=== PATIENT | female | born 1995 | race Caucasian/White ===

== ENCOUNTER 2020-08-10 19:12 | Outpatient (RCR) | payer OTHER, SELFPAY | END 2020-08-12 23:59 | LOC: EMPH 19:12 | PROVIDERS: Visit Provider Family Medicine Geriatric Medicine | DX: Z11.59 Encounter for screening for other viral diseases (principal) | CPT/HCPCS: 87635; U0003 ==

== ENCOUNTER 2020-09-04 13:39 | Emergency (ER) | payer OTHER, SELFPAY ==
[2020-09-04 13:40] VITALS: BP 138/86; PULSE 86; RESP 15; TEMP 36.4; O2SAT 100; BMI 23.9
--- NOTE | 2020-09-04 13:48 | RAD_ITS ---
STUDY: X-RAY - RIGHT HAND, ATTENTION THERE FINGER REASON FOR EXAM: Female, 24 years old. HIT RIGHT 3RD FINGER ON A MEDAL TABLE. TECHNIQUE: 3 view(s) of the finger were obtained. COMPARISON: None. FINDINGS: Normal metacarpal head. Normal metacarpophalangeal joint. Normal proximal phalanx. Normal middle phalanx. Normal distal phalanx. Normal proximal interphalangeal joint. Normal distal interphalangeal joint. RAD/Finger(s) Min 2 Views IMPRESSION: Normal x-ray examination of the finger. Electronically Signed: Ammon Parker, at 14:23 EDT , Service support ,
--- NOTE | 2020-09-04 13:56 | ED.VISSUMM ---
- ER Visit Summary Date of Service: 09/04/20 Chief Complaint: Right third finger injury History of Present Illness: The patient is a 24 F who presents with a right third finger injury that occurred 2 days ago. Patient hit her finger on a metal table. Patient states her pain is aching. Patient states the pain is worse with movement. Patient states it is better with rest. Patient denies any paresthesias or weakness. Patient denies any other injuries. Physical Examination: Vital signs are stable. Patient is afebrile. Patient is in no acute distress. Musculoskeletal exam reveals tenderness, edema, and ecchymosis over the proximal phalanx of the right third finger and PIP joint. There is no obvious deformity noted. Range of motion was slightly limited in flexion secondary to pain. Sensation was intact to light touch in all digits. Capillary refill was less than 2 seconds in all digits. Test Results: X-rays of the right third finger were obtained. There is no acute fracture. These were interpreted by the radiologist and reviewed by myself. Emergency Department Course and Treatment: Patient was given AlumaFoam splint. Patient is instructed to ice and elevate the right third finger. Patient was instructed to take Tylenol or ibuprofen as needed for pain. Patient was instructed to follow-up with a primary care physician in 5 to 7 days. Patient understood and was agreeable with the plan. All questions were answered. Disposition: Discharge home Impression: Sprain right third finger This note was generated with [employer] dictation software. It may contain incorrect words, spelling, and punctuation that were not noted in review of the chart prior to signing ED Disposition - Plan for ED Patient: Disposition: Home or Assisted Living Diagnosis: Sprain of right middle finger Instructions: ED Sprain Finger Referrals: Jolanta Rodas DO [STAFF PHYSICIAN] - 5-7 Days
== END 2020-09-04 14:55 | disposition home or self-care (01) ==
PROVIDERS: Emergency Provider Emergency Medicine
DX: S63.612A Unspecified sprain of right middle finger, initial encounter (principal); W22.8XXA Striking against or struck by other objects, initial encounter
CPT/HCPCS: 73140; 99282

== ENCOUNTER 2020-09-10 16:37 | Outpatient (RCR) | payer OTHER, SELFPAY | END 2020-09-12 23:59 | LOC: EMPH 16:37 | PROVIDERS: Visit Provider Family Medicine Geriatric Medicine | DX: Z03.818 Encounter for observation for suspected exposure to other biological agents ruled out (principal) | CPT/HCPCS: 87426 ==

== ENCOUNTER 2020-09-22 09:49 | Outpatient (RCR) | payer OTHER, SELFPAY | END 2020-10-12 23:59 | LOC: EMPH 09:49 | PROVIDERS: Referring Provider Family Medicine Geriatric Medicine; Visit Provider Family Medicine Geriatric Medicine | DX: Z03.818 Encounter for observation for suspected exposure to other biological agents ruled out (principal) | CPT/HCPCS: 87426 ==

== ENCOUNTER → 2020-12-23 15:08 | Outpatient (CLI) | payer OTHER, SELFPAY ==
[2020-12-21 09:13] VITALS: BMI 23.9
[2020-12-23 17:23] LABS: Absolute Lymphocyte Count 2.02 X10^3/uL (0.83-4.51); Basophil# 0.03 X10^3/uL; Basophil% 0.4 % (0-1); Eosinophil# 0.09 X10^3/uL; Eosinophils% 1.2 % (0-5); Hematocrit 39.5 % (37-47); Hemoglobin 13.3 g/dL (12.0-15.0); Lymphocyte # 2.02 X10^3/ul (4.0); Lymphocyte % 26.1 % (19-41); Mean Corp Hgb Conc 33.7 g/dL (32-36); Mean Corpuscular Hgb 30.7 pg (27.0-32.0); Mean Corpuscular Volume 91.2 fL (81-99); Mean Platelet Vol. 10.3 fl (6.2-12.0); Monocyte# 0.54 X10^3/uL; NRBC Flagged by Analyzer 0 % (0-5); Neutrophil # 4.96 X10^3/uL (2.7-7.7); Neutrophil % 64.1 % (47-70); Platelet Count 265 K/mm3 (150-450); RBC Distribution Width CV 11.7 % (11.6-14.6); RBC Distribution Width SD 39.3 fl (35.1-43.9); Red Blood Count 4.33 M/mm3 (4.2-5.4); White Blood Count 7.7 K/mm3 (4.4-11.0)
[2020-12-23 17:33] LABS: Vitamin D,25 Hydroxy 25.9 ng/mL
[2020-12-23 17:48] LABS: ALB/GLOB Ratio 1.3 RATIO (0.9-2.4); AST(SGOT) 12 U/L (15-37); Alanine Aminotransfer ALT/SGPT 18 U/L (13-56); Albumin, Serum 4.7 g/dL (3.2-5.0); Alkaline Phosphatase 63 U/L (45-117); Anion Gap 6 (5-15); BUN 12 mg/dL (7-18); BUN/Creat Ratio 19.6 RATIO (10-20); Calcium,Total 9.6 mg/dL (8.5-10.1); Chloride 104 mmol/L (98-107); Creatinine, Serum 0.61 mg/dL (0.55-1.02); EST Glomerular Filtration Rate 128 mL/min (>60); Est Glom Filt Rate - Afr Amer 155 mL/min (>60); Globulin 3.5 g/dL (2.2-4.2); Glucose 82 mg/dL (74-106); Iron 73 ug/dL (50-170); Iron Binding Capacity,Total 312 ug/dL (250-450); PERCENT IRON SATURATION 23.4 % (15.0-55.0); Potassium 3.8 mmol/L (3.5-5.1); Protein, Total 8.2 g/dL (6.4-8.2); Sodium Level 135 mmol/L (136-145)
== END ==
PROVIDERS: PCP Internal Medicine; Referring Provider Internal Medicine; Visit Provider Internal Medicine
DX: D68.0 Von Willebrand disease (principal)
CPT/HCPCS: 36415; 80053; 82306; 83540; 83550; 84443; 85025

== ENCOUNTER → 2021-01-07 13:28 | Outpatient (CLI) | payer OTHER, SELFPAY ==
[2021-01-01 13:00] VITALS: BMI 24.3
--- NOTE | 2021-01-07 13:30 | CT_ITS ---
STUDY: CT ABDOMEN AND PELVIS WITH CONTRAST REASON FOR EXAM: Female, 25 years old. Abd pain RADIATION DOSAGE (If Supplied By Facility): CTDIvol = ( 9.34 ) mGy, DLP = ( 457.72 ) mGycm TECHNIQUE: Transaxial images were obtained from the dome of the diaphragm to the symphysis pubis with oral contrast. Oral and amp; IV Readi-CAT and amp; 100mL Isovue-300 was administered. Sagittal and coronal images were reconstructed. Individualized dose optimization techniques were used for this CT. COMPARISON: None. FINDINGS: The visualized lung bases are unremarkable. The visualized portions of the heart are within normal limits. Normal liver. Normal gallbladder and extrahepatic biliary system. Normal spleen. Normal pancreas. Normal bilateral adrenal glands. Normal right kidney. Normal left kidney. Normal visualized stomach. Normal small intestine. Normal colon. The appendix is visualized and appears normal. Normal abdominal aorta. Normal inferior vena cava. Normal retroperitoneum. Normal urinary bladder. Follicles are seen in both ovaries. IUD is seen within the endometrium. Normal abdominal wall. Normal osseous structures. CT/Abdomen/Pelvis WITH Contrast IMPRESSION: Bilateral ovarian follicles. IUD is seen within the endometrium. Electronically Signed: Ammon Parker MD at 14:27 EST , Service support ,
== END ==
PROVIDERS: PCP Internal Medicine; Referring Provider Surgery; Visit Provider Surgery
DX: R10.9 Unspecified abdominal pain (principal)
CPT/HCPCS: 74177

== ENCOUNTER 2021-01-19 07:51 | Day surgery (SDC) | payer OTHER, SELFPAY ==
[2021-01-01 13:00] VITALS: BMI 24.3
[2021-01-19] VITALS (7 sets, daily range): BP systolic 96–122; BP diastolic 52–79; PULSE 80–99; RESP 16; TEMP 36.1–36.7; O2SAT 100; BMI 23.4
--- NOTE | 2021-01-19 07:42 | HP_ITS ---
Intake Vital Signs 01/01/21 Height 5 ft 3 in 01/01/21 Weight: 137 lb 8 oz 01/01/21 BP 126/75 H 01/01/21 Blood Pressure Location Rt brachial 01/01/21 Position Sitting 01/01/21 Respiration 20 H 01/01/21 Pulse 84 01/01/21 Pulse Source NIBP 01/01/21 Temp 97.7 F L 01/01/21 Temp Source Temporal 01/01/21 Pulse Oximetry (%) 100 01/01/21 Oxygen Delivery Method room air Intake Visit Reasons: Blood in Stool Chief Complaint: LLQ pain, blood in stool Appointment Clerk Required: No Is patient in pain?: Yes Allergies amoxicillin [From Augmentin] Allergy (Verified 01/01/21 13:00) Hives clavulanic acid [From Augmentin] Allergy (Verified 01/01/21 13:00) Hives Medications NK 01/01/21 [History Confirmed 01/01/21] Is last menstrual period known: No Post menopausal: No Patient : No PFSH Medical History (Updated 01/01/21 @ 12:59 by Maureen Balderas) Anxiety and depression (Acute) Anemia (Chronic) Mild type 1 von Willebrand disease (Chronic) Surgical History (Updated 01/01/21 @ 12:51 by Maureen Balderas) History of colonoscopy (Acute ~2010) S/P appendectomy (Resolved) Family History (Updated 01/01/21 @ 13:00 by Maureen Balderas) Grandfather Diabetes Grandmother Myocardial infarction Diabetes Breast cancer Mother CVA (cerebral vascular accident) Breast cancer Aunt Bleeding disorder Social History (Updated 01/01/21 @ 15:[address] Esequiel Lemos MD) Smoking Status: Never smoker alcohol intake: never substance use type: does not use HPI HPI HPI: ELISA MORENO, is a 25 F who presents to the office today for HPI HPI HPI: ELISA MORENO, is a 25 F who presents to the office today for Lower abdominal pain and blood in her stool. Patient notes that she has been having left lower quadrant pain that has been sharp and blunt but does not coincide with anything. She is also been having bright red blood in her stool for the last 3 weeks. No nausea or vomiting. ROS General General: Yes fatigue; no weight change, appetite, colon cancer, breast cancer or weakness HEENT HEENT: No difficulty swallowing, eye injury, eye surgery, swollen glands or hoarseness Endo Endocrine: No thyroid disease, diabetes mellitus, thyroid cancer, Hair loss, heat intolerance or cold intolerance Musc Musculoskeletal: No back problems, arthritis, rheumatoid arthritis, gout or joint pain Cardio Cardiovascular: No murmur, pacemaker, heart disease, atrial fibrillation, high blood pressure, heart attack, heart stent, palpitations, shortness of breat with exertion or chest pain Psych Psychiatric: Yes depression and anxiety; no hearing voices Resp Respiratory: No shortness of breath, No sleep apnea, No cough, No COPD, No asthma, No emphysema, No wheezing Gastro Gastrointestinal: Yes abdominal pain, Yes nausea or vomiting, Yes diarrhea, Yes constipation, Yes blood in stool, Yes acid reflux, No hemorrhoids, No ulcers, No gallbladder problem, No black,tarry stools Lasha Hematologic: No blood thinners, Yes blood disorders, Yes bleeding, No anemia, No blood clots Neuro Neurologic: No weakness Exam Const General: cooperative Orientation: alert, oriented x3 Resp Effort & Inspection: normal respiratory effort Auscultation: clear to auscultation bilaterally Cardio Rate: regular rate Rhythm: regular rhythm Heart Sounds: no murmurs GI Inspection: non-distended Palpation: soft, tender in the LLQ Assessment & Plan Problems 1. LLQ pain R10.32 2. Blood in stool K92.1 Plan The patient is having left lower quadrant pain. She also has blood in her stool. I would like to obtain a CT scan to see if she has any elements of colitis. If there are no elements of colitis I would recommend proceeding with colonoscopy. If she does have colitis I will order her antibiotics and delay the colonoscopy until the colitis has resolved. I explained endoscopy in detail to the patient. I explained the risks including but not limited to stroke or heart attack with anesthesia, perforation of the GI tract, bleeding, infection. I explained that any of these could necessitate further emergency surgery. The patient understands and all questions were answered sufficiently. The patient wishes to proceed with procedure. Esequiel Lemos MD Pager: [facility] [address] [place] [address], [address] [place] [address] Office: Orders Orders: Abdomen/Pelvis WITH Contrast Today R10.9 Coding Level of Care Code Off vis,new,level 3 Diagnoses LLQ pain R10.32 Blood in stool K92.1 I have re-examined the patient. There are no clinical changes since date of exam.
[2021-01-19 08:16] LABS: Internal QC Validated? YES +Cl - CLEAR BKGD; Pregnancy, Urine Negative Negative
[2021-01-19] MEDS: Lactated Ringers 1,000 ML 100 ML IV (08:21)
--- NOTE | 2021-01-19 09:00 | COLBX_PTH ---
PATIENT: ELISA COPELAND LOC: EN U#:[id number] AGE/SX: 25/F ROOM: RE01/19/[address]: Dr. Esequiel Lemos MD : 1995 BED: DIS: 01/19/2021 SPEC #: [id number] RECD: 01/19/21 13:44 STATUS: KEVIN PORSHA #: [id number] THOMAS: 01/19/21 09:[address]: Esequiel Lemos DEPT: SURGICAL PATHOLOGY RECD BY: Karly Thorne ENTERED: 01/20/21 07:37 SP TYPE: COLON BX OTHR DR: Dr. Mary Haas MD Tissues: A - COLON BIOPSY B - Ileum, NOS Procedures: Surgery Specimen Level IV HEADER OPERATION: Colonoscopy (MAC) PRE-OP DIAGNOSIS: LLQ pain, blood in stool TISSUE SUBMITTED: A - Random colonic biopsies, B - Terminal ileum biopsy MICROSCOPIC DIAGNOSIS A. Colon, random biopsy: Fragments of colonic mucosa, no pathologic diagnosis. B. Terminal ileum, biopsy: Fragments of small intestinal mucosa, no pathologic diagnosis. STEPHANE:khris 01/21/2021 MICROSCOPIC DESCRIPTION Slides are reviewed. GROSS DESCRIPTION A - Received in fixative is one container labeled with the patient's name and designated random colonic biopsy. The specimen consists of multiple irregular fragments of light danielle soft tissue that in aggregate measure 1.5 x 0.5 x 0.1 cm. The specimen is totally submitted in one cassette. B - Received in fixative is one container labeled with the patient's name and designated terminal ileum biopsy. The specimen consists of two irregular fragments of light danielle soft tissue that in aggregate measure 0.8 x 0.3 x 0.1 cm. The specimen is totally submitted in one cassette. / STEPHANE:khris 01/20/21 TC:4 CPT: 63662 x2
--- NOTE | 2021-01-19 09:24 | OP.CCLET_ITS ---
01/19/2021 Mary Haas [facility] [address] [place] [address] Re : Colonoscopy procedure for Angelia Pike Dear Dr. Haas This procedure was performed on Tuesday, January 19, 2021. My impressions and recommendations are as follows: Impressions : - The entire examined colon is normal on direct and retroflexion views. - Biopsies were taken with a cold forceps for histology in the terminal ileum. - Biopsies were taken with a cold forceps from the entire colon for evaluation of microscopic colitis. Recommendations : - Discharge patient to home. - Resume previous diet. - Continue present medications. - Await pathology results. - Repeat colonoscopy at age 52 for screening purposes. My findings are described in the full procedure note, which is enclosed. If I can be of further assistance, please feel free to contact me at Doctor phone number(s): , Work: . Sincerely, Esequiel Lemos MD 01/19/2021 9:24:04 AM This report has been signed electronically.
--- NOTE | 2021-01-19 09:24 | OP.COLON_ITS ---
Patient Name: Angelia Pike Procedure Date: 01/19/2021 8:59 AM Date of : 1995 Age: 25 Procedure: Colonoscopy Indications: Abdominal pain in the left lower quadrant, Hematochezia Providers: Esequiel Lemos MD Referring MD: Mary Haas Medicines: Monitored Anesthesia Care Patient Profile: This is a 25 year old female. Refer to note in patient chart for documentation of history and physical. Last Colonoscopy: none. The patient's first colonoscopy is today. Complications: No immediate complications. Procedure: Pre-Anesthesia Assessment: - Prior to the procedure, a History and Physical was performed, and patient medications and allergies were reviewed. The patient's tolerance of previous anesthesia was also reviewed. The risks and benefits of the procedure and the sedation options and risks were discussed with the patient. All questions were answered, and informed consent was obtained. Prior Anticoagulants: The patient has taken no previous anticoagulant or antiplatelet agents. After reviewing the risks and benefits, the patient was deemed in satisfactory condition to undergo the procedure. After I obtained informed consent, the scope was passed under direct vision. Throughout the procedure, the patient's blood pressure, pulse, and oxygen saturations were monitored continuously. The colonoscope was introduced through the anus and advanced to the cecum, identified by appendiceal orifice and ileocecal valve. The colonoscopy was performed without difficulty. The patient tolerated the procedure well. The quality of the bowel preparation was good. Scope In: 9:08:00 AM Scope Withdrawal Time 0 hours 8 minutes 11 seconds Scope Out: 9:20:07 AM Total Procedure Duration Time 0 hours 12 minutes 7 seconds Findings: The entire examined colon appeared normal on direct and retroflexion views. Biopsies were taken with a cold forceps in the terminal ileum for histology. Biopsies for histology were taken with a cold forceps from the entire colon for evaluation of microscopic colitis. Impression: - The entire examined colon is normal on direct and retroflexion views. - Biopsies were taken with a cold forceps for histology in the terminal ileum. - Biopsies were taken with a cold forceps from the entire colon for evaluation of microscopic colitis. Recommendation: - Discharge patient to home. - Resume previous diet. - Continue present medications. - Await pathology results. - Repeat colonoscopy at age 52 for screening purposes. Procedure Code(s): --- Professional --- 98721, Colonoscopy, flexible; with biopsy, single or multiple Diagnosis Code(s): --- Professional --- R10.32, Left lower quadrant pain K92.1, Melena (includes Hematochezia) CPT copyright 2017 [employer]. All rights reserved. The codes documented in this report are preliminary and upon mill oiler review may be revised to meet current compliance requirements. Esequiel Lemos MD 01/19/2021 9:24:04 AM This report has been signed electronically. Number of Addenda: 0 Note Initiated On: 01/19/2021 8:59 AM
== END 2021-01-19 10:18 | disposition home or self-care (01) ==
LOC: EN 07:52 → AC 07:53
PROVIDERS: Anesthesiology; PCP Internal Medicine; Referring Provider Internal Medicine; Visit Provider Surgery
PROC: 0DJD8ZZ Inspection of Lower Intestinal Tract, Via Natural or Artificial Opening Endoscopic (ICD-10-PCS; CPT 45378; principal; 2021-01-19 08:55)
DX: K92.1 Melena (principal); R10.32 Left lower quadrant pain; Z20.828 Contact with and (suspected) exposure to other viral communicable diseases; K21.9 Gastro-esophageal reflux disease without esophagitis
CPT/HCPCS: 45380; 81025; 87426; 88305; C9803; J7120

== ENCOUNTER → 2023-07-21 | Outpatient (CLI) | payer BC, SELFPAY ==
[2023-07-21 12:11] LABS: hCG Titer Quant., Serum 5067 mIU/mL (1-3)
== END | disposition home or self-care (01) ==
PROVIDERS: PCP Internal Medicine; Referring Provider Registered Nurse; Visit Provider Registered Nurse
DX: N92.0 Excessive and frequent menstruation with regular cycle (principal)
CPT/HCPCS: 36415; 84702

== ENCOUNTER → 2023-07-21 | Outpatient (CLI) | payer BC, SELFPAY ==
--- NOTE | 2023-07-21 18:09 | US_ITS ---
EXAM: US , TRANSVAGINAL CLINICAL INDICATION: pelvic pain/spotting TECHNIQUE: Real-time transvaginal obstetrical ultrasound of the maternal pelvis and a first trimester with image documentation. Transvaginal imaging was used for better evaluation of the fetus and adnexa. COMPARISON: No relevant prior studies available. FINDINGS: GESTATION: Probable early intrauterine gestational sac with mean sac diameter of 9.5 mm. Gestational age by ultrasound: 5 weeks 5 days, NORMAN 03/17/2024. No pole or yolk sac identified at this time. PLACENTA/AMNIOTIC FLUID: Cannot be adequately evaluated due to the early gestational age. UTERUS/CERVIX: Septate uterus. No myometrial mass. OVARIES: Ovaries and adnexa have an unremarkable appearance. No mass. FREE FLUID: Moderate amount of free fluid. US/Transvaginal w/Preg US IMPRESSION: Probable early intrauterine gestational sac measuring 5 weeks 5 days, too small to visualize a pole. Interval follow-up is recommended to evaluate for growth/viability. The gestational sac is within the right side of a septated uterus. Electronically Signed: Chance Bhatia MD at 20:07 EDT ,
== END | disposition home or self-care (01) ==
PROVIDERS: PCP Internal Medicine; Visit Provider Registered Nurse
DX: N92.0 Excessive and frequent menstruation with regular cycle (principal)
CPT/HCPCS: 76817

== ENCOUNTER → 2023-07-23 | Outpatient (CLI) | payer BC, SELFPAY ==
[2023-07-23 15:16] LABS: hCG Titer Quant., Serum 9341 mIU/mL (1-3)
== END | disposition home or self-care (01) ==
LOC: LAB 13:41
PROVIDERS: PCP Internal Medicine; Visit Provider Registered Nurse
DX: O36.80X0 Pregnancy with inconclusive fetal viability, not applicable or unspecified (principal); Z3A.00 Weeks of gestation of pregnancy not specified
CPT/HCPCS: 36415; 84702

== ENCOUNTER → 2023-08-03 | Outpatient (CLI) | payer BC, SELFPAY ==
--- NOTE | 2023-08-03 15:13 | US_ITS ---
EXAM: US , Transvaginal CLINICAL INDICATION: 27 years old, Female; well being TECHNIQUE: Real-time endovaginal obstetrical ultrasound of the maternal pelvis and a first trimester with image documentation. Transvaginal imaging was used for better evaluation of the fetus and adnexa. COMPARISON: No relevant prior studies available. FINDINGS: Gestation: Intrauterine gestational sac containing a 9 mm embryo with cardiac rate is 123 bpm. Placenta/amniotic fluid: Cannot be adequately evaluated due to the early gestational age. Uterus/cervix: Normal. Anteverted. No uterine mass. Ovaries: Right ovary 2.9, 2.3 x 2.1. No mass. The left ovary measures 2.9 x 1.8 x 1.5 cm. Free fluid: No adnexal mass or free pelvic fluid. US/Transvaginal w/Preg US IMPRESSION: Single live 7 week intrauterine gestation by crown-rump measurement with ultrasound NORMAN of March 27, 2024. Electronically Signed: Michael Isaac MD at 12:19 EDT ,
== END | disposition home or self-care (01) ==
LOC: US 15:08
PROVIDERS: PCP Internal Medicine; Referring Provider Registered Nurse; Visit Provider Registered Nurse
DX: O34.00 Maternal care for unspecified congenital malformation of uterus, unspecified trimester (principal); Q51.28 Other and unspecified doubling of uterus; N92.0 Excessive and frequent menstruation with regular cycle; Z3A.00 Weeks of gestation of pregnancy not specified; O99.891 Other specified diseases and conditions complicating pregnancy
CPT/HCPCS: 76817

== ENCOUNTER 2023-08-10 09:55 | Emergency (ER) | payer BC, SELFPAY ==
[2023-08-10 09:56] VITALS: BP 135/88; PULSE 126; RESP 14; TEMP 36.4; O2SAT 98; BMI 24.7
--- NOTE | 2023-08-10 10:56 | US_ITS ---
STUDY: FIRST TRIMESTER OBSTETRICAL ULTRASOUND REASON FOR EXAM: Female, 27 years old vaginal bleeding + IUP, abd pain LMP: June 15, 2023. TECHNIQUE: Transvaginal TECHNICAL QUALITY: Adequate. PRIOR ULTRASOUND: Comparison is made with prior study dated August 03, 2023. FINDINGS: There is visualization of a single gestational sac in a normal intrauterine position. The mean sac diameter (MSD) measures 3.6 cm, indicating an estimated gestational age (EGA) of 8 weeks, 6 days. The gestational sac shape is within normal limits. There is a visualized yolk sac. The yolk sac measures 5 mm. The placenta is non-visualized. There is visualization of a live embryo. The crown-rump length (CRL) measures 1.5 cm, indicating an estimated gestational age (EGA) of 7 weeks, 6 days. There is demonstrated cardiac activity with a heart rate of 157 bpm. The estimated gestation age (EGA) by LMP is 8 weeks, 0 days. The estimated date of delivery (NORMAN) by LMP is March 21, 2024. The estimated gestation age (EGA) by US is 8 weeks, 3 days. The estimated date of delivery (NORMAN) by US is March 18, 2024. The uterus measures 10.1 cm x 8.1 cm x 6.5 cm. There is no demonstrated uterine fibroid. The cervix is closed. The right ovary measures 3.5 cm x 2.3 cm x 2.5 cm. There is no right ovarian cyst. There is no visualized right adnexal mass or complex lesion. The left ovary measures 3 cm x 1.9 cm x 1.6 cm. There is no left ovarian cyst. There is no visualized left adnexal mass or complex lesion. There is no fluid in the cul de sac. US/Transvaginal w/Preg US IMPRESSION: Single live intrauterine gestation with a mean gestational age of 8 weeks and 3 days. Electronically Signed: Ammon Parker MD at 13:28 EDT ,
--- NOTE | 2023-08-10 11:18 | ED.VIS.FEGU ---
HPI HPI - Female History of Present Illness Chief Complaint: Vag Bld, Preg Informant: patient Narrative Narrative: Patient is a 27-year-old female G2, P0 currently approximately 8 weeks with last menstrual period June 15, presenting with vaginal bleeding and lower abdominal cramping. Patient states that she is been told she has von Willebrand type I in the past but she recently saw hematology and was told that she does not have it anymore but there may be with something going on with her platelets. She is following up further with hematology tomorrow. She follows with [place] [facility]. She has had 2 ultrasounds this and the last one was a week ago. It showed a single live intrauterine gestation of 7 weeks. Has had bleeding throughout this . She started having bleeding again today and notes she passed a large clot. She feels that the bleeding is slowing down at this point. She is not sure what her blood type is. She came in for further evaluation. Denies any other symptoms or concerns at this time. Denies any recent intercourse. Notes that she was told 1 time that she may be has a septated uterus but is not sure of that either. PFSH PFS Medical History Anemia Anxiety and depression Mild type 1 von Willebrand disease Home Medications dicyclomine 10 mg capsule 10 mg PO TID #30 caps 01/22/21 [Rx Last Taken Unknown] Allergy/AdvReac Type Severity Reaction Status Date / Time amoxicillin [From Augmentin] Allergy Hives Verified 08/10/23 09:56 clavulanic acid Allergy Hives Verified 08/10/23 09:56 [From Augmentin] Family History Grandfather Diabetes Grandmother Myocardial infarction Diabetes Breast cancer Mother CVA (cerebral vascular accident) Breast cancer Aunt Bleeding disorder Surgical History History of colonoscopy (~2010) S/P appendectomy Social History Smoking Status: Never smoker alcohol intake: never substance use type: does not use ROS ROS ED Constitutional Constitutional ED: Denies chills or fever(s) Cardiovascular Cardiovascular: Denies chest pain Respiratory/Chest Respiratory/Chest: Denies cough Gastrointestinal Gastrointestinal: Denies nausea or vomiting Genitourinary Genitourinary ED: Reports other Details: vaginal bleeding ; Denies dysuria or hematuria Musculoskeletal Musculoskeletal: Denies arthralgias or myalgias Integumentary Denies rash Neurologic Neurologic: Denies headache(s) or weakness Psychiatric Psychiatric: Reports anxiety Hematologic/Lymphatic Hematologic/Lymphatic: Reports easy bleeding; Denies easy bruising EXAM Physical Exam Const Vital Signs: 08/10/23 09:56 Temperature 97.6 F L Temperature Source Temporal Pulse Rate 126 H Respiratory Rate 14 Blood Pressure 135/88 H Blood Pressure Mean 103 Pulse Ox 98 Oxygen Delivery Method Room Air Positive well nourished and well developed General Appearance ED: well developed and NAD HEENT Reports moist mucous membranes Eyes PERRL and EOMs intact bilaterally General Eye ED: Negative for pale conjunctiva Neck supple Chest Wall inspection of chest normal Resp normal respiratory effort and clear to auscultation bilaterally Cardio regular rhythm Rate: tachycardic GI normal to inspection, nondistended, normoactive bowel sounds and soft to palpation GI Narrative: Mild tenderness to the suprapubic region Narrative: Deferred Back/Spine no CVA tenderness Extremity normal to inspection and full ROM Neuro oriented x3 Sensorium / Orientation: alert Psych mental status grossly normal Mood & Affect: anxious Skin no rashes or lesions noted MDM MDM MDM Narrative Medical decision making narrative: [place] for vaginally and early . She is mildly tachycardic on arrival but does admit she is very anxious. She otherwise is well-appearing. Bedside ultrasound performed by myself shows a single intrauterine gestation with a heart rate of approximately 163/min. There is a slight abnormality to the gestational sac as well as a questionable some chorionic hemorrhage noted. We will obtain a formal ultrasound after discussion with the patient. I will obtain Rh factor as its not clear what her blood type is to see if she requires RhoGAM. Will obtain a CBC and platelet count given her history of possible von Willebrand's disease and something wrong with her platelets. Once I have these results we will discuss the case with her [employer]. Urinalysis is pending. Patient is a mild leukocytosis of 12.5 which is nonspecific. Hemoglobin is normal at 12.1 and platelets are normal at 264. Urinalysis does show likely lamination as it has greater than 100 red blood cells, 10-25 white blood cells and 5-10 squamous epithelial cells with negative nitrites. She is O+ and does not require RhoGAM. Ultrasounds obtained shows a single live intrauterine gestation measuring 8 weeks 3 days. Patient counseled that this is threatened miscarriage. I did discuss with D[employer]ER on-call, Dr. Librado Iraheta,, who recommends rest and will follow-up in the office. Patient is well appointment for next week. Patient is hemodynamically stable. Will follow-up with her child support agent tomorrow as scheduled. Verbalized agreement understand this plan. Discharged home in stable condition. Return precautions such as worsening pain, lightheadedness, heavy bleeding with soaking more of her own pad an hour for 2 hours in a row or passing clots size of a baseball or larger. Lab Data Labs: Laboratory Results - last 24 hr 08/10/23 08/10/23 11:12 11:18 WBC 12.5 H RBC 3.96 L Hgb 12.1 Hct 36.3 L MCV 91.7 MCH 30.6 MCHC 33.3 RDW Std Deviation 39.7 RDW Coeff of Talon 11.8 Plt Count 264 MPV 9.8 Immature Gran % (Auto) 0.500 Neut % (Auto) 83.6 H Lymph % (Auto) 10.2 L [place] % (Auto) 5.3 Eos % (Auto) 0.2 Baso % (Auto) 0.2 Absolute Neuts (auto) 10.5 H Absolute Lymphs (auto) 1.28 Nucleated RBC % 0 Urine Color Red Urine Clarity Cloudy Urine pH 7.0 Ur Specific [place] 1.010 Urine Protein 100 H Urine Glucose (UA) Normal Urine Ketones 5 H Urine Occult Blood 250 H Urine Nitrite Negative Urine Bilirubin Negative Urine Urobilinogen Normal Ur Leukocyte Esterase 100 H Urine RBC > 100 SEEN Urine WBC 10-25 SEEN Ur Squamous Epith Cells 5-10 SEEN Urine Bacteria RARE Urine Mucus 0 SEEN Blood Type O POSITIVE Radiography Diagnostic Testing: Clinical Impression(s) from Imaging Studies Obstetrics Ultrasound 08/10/23 10:56 IMPRESSION: Single live intrauterine gestation with a mean gestational age of 8 weeks and 3 days. Electronically Signed: Ammon Parker MD at 13:28 EDT , Discharge Plan Triage Chief Complaint: Vag Bld, Preg ED Provider: Lynda Fall Dx/Rx/DC Orders Clinical Impression: Bleeding in early , Threatened miscarriage Instructions: ED Possible Miscarriage ... Prescriptions: No Action dicyclomine 10 mg capsule 10 mg PO TID Qty: 30 2RF Primary Care Provider: Mary Haas Referrals: Mary Haas MD [Primary Care Provider] - Lida Mabry MD [Med Staff - Active Staff] - Keep Dany appointment Activity Restrictions/Additional Instructions: While you are having vaginal bleeding there is no sign of an active miscarriage at this time and you still have a live with a strong heartbeat. Please continue follow-up with your child support agent as we discussed. Exact cause of her bleed is not clear. Recommend physical and pelvic rest in the meantime. If the bleeding becomes more brisk, you develop worsening pain or you have further concerns please call your DIESEL LOCOMOTIVE ENGINEER and/or return to the emergency room
[2023-08-10 11:21] LABS: Absolute Lymphocyte Count 1.28 X10^3/uL (0.83-4.51); Absolute Neutrophil Count 10.5 X10^3/uL (2.0-7.7); Basophil# 0.02 X10^3/uL; Basophil% 0.2 % (0-1); Eosinophil# 0.02 X10^3/uL; Eosinophils% 0.2 % (0-5); Hematocrit 36.3 % (37-47); Hemoglobin 12.1 g/dL (12.0-15.0); Lymphocyte # 1.28 X10^3/ul (0.83-4.51); Lymphocyte % 10.2 % (19-41); Mean Corp Hgb Conc 33.3 g/dL (32-36); Mean Corpuscular Hgb 30.6 pg (27.0-32.0); Mean Corpuscular Volume 91.7 fL (81-99); Mean Platelet Vol. 9.8 fl (6.2-12.0); Monocyte# 0.67 X10^3/uL; Monocyte% 5.3 % (0-10); NRBC Flagged by Analyzer 0 % (0-5); Neutrophil # 10.48 X10^3/uL (2.7-7.7); Neutrophil % 83.6 % (47-70); Platelet Count 264 K/mm3 (150-450); RBC Distribution Width CV 11.8 % (11.6-14.6); RBC Distribution Width SD 39.7 fl (35.1-43.9); Red Blood Count 3.96 M/mm3 (4.2-5.4); White Blood Count 12.5 K/mm3 (4.4-11.0)
[2023-08-10 11:26] LABS: Mucous, Urine 0 SEEN /hpf (<or=2+)
[2023-08-10 11:30] LABS: Color, Urine Red (Yellow); Glucose, Dipstick Normal (Normal); Ketone-Dipstick 5 mg/dl (Negative); Leukocyte Esterase-Dipstick 100 /ul (Negative); Nitrite-Dipstick Negative (Negative); Occult Blood-Urine 250 /ul (Negative); Protein-Dipstick 100 mg/dl (Negative); Urine Bilirubin Dipstick Negative (Negative); Urine Clarity Cloudy (Clear); Urine Urobilinogen Normal (Normal)
[2023-08-10 11:42] LABS: Bacteria RARE /hpf (None Seen); Red Blood Cells-Urine > 100 SEEN /hpf (0-5); Squamous Epithelial Cells - UA 5-10 SEEN /hpf (5-10); White Blood Cells 10-25 SEEN /hpf (0-5)
== END 2023-08-10 14:14 | disposition home or self-care (01) ==
PROVIDERS: Emergency Provider Emergency Medicine; PCP Internal Medicine; Visit Provider Emergency Medicine
DX: O20.0 Threatened abortion (principal); O26.891 Other specified pregnancy related conditions, first trimester; R10.30 Lower abdominal pain, unspecified; Z3A.08 8 weeks gestation of pregnancy
CPT/HCPCS: 76817; 81001; 85025; 86900; 86901; 87086; 87088; 99283; A4216

== ENCOUNTER → 2023-08-18 | Outpatient (CLI) | payer BC, SELFPAY ==
[2023-08-22 03:07] LABS: Chlamydia By Nucleic Acid AMP Negative (Negative); Gonococcus By Nucleic Acid AMP Negative (Negative)
== END | disposition home or self-care (01) ==
LOC: LABSPEC 10:46
PROVIDERS: PCP Internal Medicine; Referring Provider Advanced Practice Midwife; Visit Provider Advanced Practice Midwife
DX: O09.90 Supervision of high risk pregnancy, unspecified, unspecified trimester (principal); Z3A.00 Weeks of gestation of pregnancy not specified
CPT/HCPCS: 87491; 87591

== ENCOUNTER → 2023-08-25 | Outpatient (CLI) | payer BC, SELFPAY ==
[2023-08-25 14:54] LABS: Absolute Neutrophil Count 6.6 X10^3/uL (2.0-7.7); Basophil# 0.01 X10^3/uL; Basophil% 0.1 % (0-1); Eosinophil# 0.06 X10^3/uL; Eosinophils% 0.7 % (0-5); Hematocrit 35.8 % (37-47); Hemoglobin 12.3 g/dL (12.0-15.0); Lymphocyte % 10.9 % (19-41); Mean Corp Hgb Conc 34.4 g/dL (32-36); Mean Corpuscular Hgb 31.4 pg (27.0-32.0); Mean Corpuscular Volume 91.3 fL (81-99); Mean Platelet Vol. 9.2 fl (6.2-12.0); Monocyte# 0.61 X10^3/uL; Monocyte% 7.4 % (0-10); NRBC Flagged by Analyzer 0 % (0-5); Neutrophil # 6.62 X10^3/uL (2.7-7.7); Neutrophil % 80.5 % (47-70); Platelet Count 249 K/mm3 (150-450); RBC Distribution Width CV 12.2 % (11.6-14.6); RBC Distribution Width SD 40.6 fl (35.1-43.9); Red Blood Count 3.92 M/mm3 (4.2-5.4); White Blood Count 8.2 K/mm3 (4.4-11.0)
[2023-08-25 15:36] LABS: NATERA MAILED SPECIMEN
[2023-08-25 16:34] LABS: HIV - WCH Non-Reactive (Nonreactive); Hepatitis B Surface Antigen Non-Reactive (Nonreactive); Hepatitis C Antibody Non-Reactive (Nonreactive); Rubella IgG Reactive (Nonreactive); Syphilis Antibodies Non-reactive
== END | disposition home or self-care (01) ==
PROVIDERS: PCP Internal Medicine; Visit Provider Advanced Practice Midwife
DX: Z34.01 Encounter for supervision of normal first pregnancy, first trimester (principal); Z3A.00 Weeks of gestation of pregnancy not specified; Z31.430 Encounter of female for testing for genetic disease carrier status for procreative management
CPT/HCPCS: 36415; 85025; 86703; 86762; 86780; 86803; 86850; 86900; 86901; 87340

== ENCOUNTER → 2023-12-22 | Outpatient (CLI) | payer BC, SELFPAY ==
[2023-12-22 13:54] LABS: Absolute Lymphocyte Count 1.59 X10^3/uL (0.83-4.51); Absolute Neutrophil Count 11.3 X10^3/uL (2.0-7.7); Basophil# 0.06 X10^3/uL; Basophil% 0.4 % (0-1); Eosinophil# 0.07 X10^3/uL; Eosinophils% 0.5 % (0-5); Hematocrit 33.7 % (37-47); Hemoglobin 11.1 g/dL (12.0-15.0); Lymphocyte # 1.59 X10^3/ul (0.83-4.51); Lymphocyte % 11.2 % (19-41); Mean Corp Hgb Conc 32.9 g/dL (32-36); Mean Corpuscular Hgb 30.9 pg (27.0-32.0); Mean Corpuscular Volume 93.9 fL (81-99); Mean Platelet Vol. 9.6 fl (6.2-12.0); Monocyte# 0.93 X10^3/uL; Monocyte% 6.5 % (0-10); NRBC Flagged by Analyzer 0 % (0-5); Neutrophil # 11.27 X10^3/uL (2.7-7.7); Platelet Count 241 K/mm3 (150-450); RBC Distribution Width CV 12.7 % (11.6-14.6); RBC Distribution Width SD 43.7 fl (35.1-43.9); Red Blood Count 3.59 M/mm3 (4.2-5.4); White Blood Count 14.3 K/mm3 (4.4-11.0)
[2023-12-22 14:17] LABS: Glucose Challenge Gest 1H 50g 140 mg/dL (70-140)
[2023-12-22 14:53] LABS: HIV - WCH Non-Reactive (Nonreactive); Syphilis Antibodies Non-reactive
== END | disposition home or self-care (01) ==
LOC: LAB 13:29
PROVIDERS: PCP Internal Medicine; Referring Provider Obstetrics & Gynecology; Visit Provider Obstetrics & Gynecology
DX: Z34.90 Encounter for supervision of normal pregnancy, unspecified, unspecified trimester (principal); Z3A.00 Weeks of gestation of pregnancy not specified
CPT/HCPCS: 36415; 82950; 85025; 86703; 86780

== ENCOUNTER → 2024-01-05 | Outpatient (CLI) | payer BC, SELFPAY ==
--- OUTSIDE RECORDS SUMMARY | 2024-01-05 10:28 | XMS RPT_ITS | CCD ---
Author Name Unknown Address [address] [place] [address] Organization [facility] Care Team Providers Care Tier Over Name Role Phone DAISY ROGERS Attending PHYSICIAN Derek Primary Care Unavailable Unavailable Primary Care Provider Luis Dawson MD Unavailable [phone] MILO LOVETT Primary Care Unavailable PASCALE SINGER Referring PASCALE Richardson Attending LUIS Jang Referring Unavailable LUIS GIBSON Referring Unavailable SUSANNA TERAN Referring Unavailable LUIS GIBSON Attending Unavailable Allergies Allergy Classification Reported Allergen(s) Allergy Type Date of Onset Reaction(s) Facility (8 sources) AMOXICILLIN-POT CLAVULANATE; Translations: [AMOXICILLIN-POT CLAVULANATE] Propensity to adverse reactions to drug (disorder) 1 [facility] Repository (1 source) Aspirin; Translations: [ASPIRIN] Drug Allergy 3 [facility] Repository (1 source) NSAIDs; Translations: [NSAIDS] Propensity to adverse reactions to drug (disorder) 3 [facility] Repository Medications Completed/Discontinued Medications Medication Drug Class(es) Dates Sig (Normalized) Sig (Original) vit no.124/iron/folic ( VITAMIN ORAL) (5 sources) take 1 tablet by emma th once daily vit no.124/iron/folic ( VITAMIN ORAL) Take 1 tablet by mouth once daily. 0 Active Problems Problem Classification Problem Date Documented Da te Episodic/Chronic Other circulatory disease (4 sources) Bleeding; Translations: [Hemorrhage, not elsewhere classified] 06-30-2023 Episodic Other circulatory disease (1 source) Hemorrhage, not elsewhere classified; Translations: [Bleeding] Onset: 12-29-2023 Episodic Results Test Name Value Interpretation Reference Range Facil ity Vital Signs Date Time Vital Sign Value Performing Clinician Laney alfaro 06-30-2023 10:16-0400 Body height 158.1 cm Luis Gibson MD Work Phone: [facility] 06-30-2023 10:16-0400 Body temperature 97.81 [degF] Luis Gibson MD Work Phone: [facility] 06-30-2023 10:16-0400 Body weight 60.1 kg Luis Gibson MD Work Phone: [facility] 06-30-2023 10:16-0400 Diastolic blood pressure 78 mm[Hg] Luis Gibson MD Work Phone: [facility] 06-30-2023 10:16-0400 Heart rate 87 /min Luis Gibson MD Work Phone: [facility] 06-30-2023 10:16-0400 SaO2% (BldA) [Mass fraction] 100 % Luis Gibson MD Work Phone: [facility] 06-30-2023 10:16-0400 Systolic blood pressure 116 mm[Hg] Luis Gibson MD Work Phone: [facility] Encounters Encounter Date Encounter Type Care Provider Facility Start: 12-29-2023 ambulatory LUIS Valentin y:[facility] Start: 12-11-2023 Telephone encounter Luis carpio MD Work Phone: Hematology/Oncology Plan of Treatment Date Care Activity Detail Author Start: 12-12-2023 End: 03-12-2024 PLATELET AGGREGATION PANEL PLATELET AGGREGATION PANEL Lab Routine Bleeding Expected: 12/12/2023, Expires: 03/12/2024 [facility] Work Phone: Payers Date Payer Category Payer Unknown ASIF LUIS NOLBERTO MABRY PPO [id number] 2022-Present [phone] [address] [place] [address] PPO [id number] 2022 Unknown [id number] 2022 Unknown [id number] 2021 Worker's Compensation [id number] 1997 Unknown [id number] 1997 Unknown [id number] 1997 Unknown [id number] 1997 Unknown [id number] Unknown [id number] Unknown [id number] Unknown [id number] Unknown [id number] Social History Date Type Detail Facility Tobacco smoking stat [facility] Tobacco smoking consumption unknown [facility] Start: 1995 Sex Assigned At Not on file [facility] Start: 06-30-2023 Gender identity Not on file [facility] Start: 06-30-2023 Tobacco smoking stat [facility] Never smoked tobacco [facility] Start: 06-30-2023 Tobacco use and exposure Smokeless t obacco non-user [facility] Start: 06-30-2023 History of Social function [facility] Clinical Notes 06-23-2023 to 12-21-2023 Telephone Encounter - Linda Muñoz - 12/21/2023 11:02 AM ESTTelephone Encounter - Linda Muñoz - 12/19/2023 11:30 AM ESTTelephone Encounter - Naomy Polanco - 12/12/2023 4:59 PM EST Note Date & Type Note Facility 12-21-2023 Miscellaneous Notes Formattin g of this note might be different from the original. 3rd attempt left a vm and unable to reach letter sent through [employer] Linda Muñoz 2 [place] ATTEMPT Linda Muñoz Spoke with pt did not have insurance card as card in system is rejecting. Will call pt tomorrow PSS: lab order placed. please call patient to schedule. Marisel Hill RN Patient calling asking for a new lab order due to missing her lab appointment in July. Please advise and call patient documented in this encounter [facility] 08-02-2023 Miscellaneous Notes Formattin g of this note might be different from the original. Spoke to patient re coagulation evaluation.so will check platelet aggregation. She takes no aspirin, NSAIDs antihistamines or supplements, only a pre vitamin She is 7 weeks at this time. Luis Gibson MD August 02, 2023 documented in this encounter [facility] 08-01-2023 Miscellaneous Notes Formattin g of this note might be different from the original. Pt returned call. Asked clinical staff if they could talk to pt. Stated she should talk to provider, however the provider had left for the day. Please contact pt regarding results. Also checked pt's AVS from OV on 06/30 and there were no follow up instructions Please advise on if pt needs a follow up OV Thank you! Called pt to review vW panel. Asked her to katelin me back, will plan platelet aggregation study if she's not taking aspirin or NSAIDs. Luis Gibson MD August 01, 2023 documented in this encounter [facility] 06-30-2023 Miscellaneous Notes Formattin g of this note might be different from the original. Dr Gibson stated no F/U was needed. Michelle Lopez LPN No AVS at check out only one lab order placed. Please advise on scheduling Thank you! documented in this encounter [facility] 06-30-2023 Note HNO ID: [id number] Author: Luis Gibson MD Service: ? Author Type: Physician Type: Progress Notes Filed: 06/30/2023 1:03 PM Note Text: HISTORY OF PRESENT ILLNESS: Elisa Copeland is a 27 year old female in her teens noted to have heavy periods, MERARI, went to to [facility], diagnosed with vWD. Has taken stimate in past. Had teeth pulled for activities director scouting, no problems with bleeding, but did take a liquid by mouth for a week prior. Periods now not heavy. Does note easy bruising. Planning to start a family, [facility] No known family history of vWD CLINICAL IMPRESSION: Reported history vWD. Not much bleeding history RECOMMENDATION/PLAN: 1. vWD panel now 2. Likely repeat in third trimester to assess for need for product or DDAVP ante and post Written and verbal health teaching given to patient, patient verbalizes understanding and agrees with treatment plan. PAST MEDICAL HISTORY Diagnosis Date Von Willebrand disease (HCC) PAST SURGICAL HISTORY Procedure Laterality Date APPENDECTOMY FAMILY HISTORY Problem Relation Age of Onset other (MRDD) Sister Breast Cancer Maternal Grandmother Diabetes Maternal Grandfather Diabetes Paternal Grandfather Social History Tobacco Use Smoking status: Never Smokeless tobacco: Never Vaping Use Vaping Use: current everyday user ALLERGIES: ALLERGIES Allergen Reactions Amoxicillin-Pot Cla* Rash CURRENT OUTPATIENT MEDICATIONS: vit no.124/iron/folic ( VITAMIN ORAL) Take 1 tablet by mouth once daily. REVIEW OF SYSTEMS: GENERAL: No fever, night sweats, weight loss or malaise. All other reviewed and negative other than HPI. PHYSICAL EXAMINATION: VITAL SIGNS: BP 116/78 Pulse 87 Temp (Src) 97.8 (Temporal) Ht 5' 2.25 (1.58m) Wt 132 lb 8 oz (60.1kg) SpO2 100% BMI 24.05 kg/(m2). GENERAL APPEARANCE: Well appearing, in no acute distress, alert and oriented x3, well-hydrated, well nourished. I spent a total of 30 minutes on the date of the service which included preparing to see the patient, [id number] patient care, completing clinical documentation, obtaining and/or reviewing separately obtained history, counseling and educating the patient/family/caregiver, ordering medications, tests, or procedures, independently interpreting results (not separately reported), and communicating results to the patient/family/caregiver. Electronically Signed: Luis Gibson MD June 30, 2023 10:24 AM [facility] 06-30-2023 History of Presen t illness Narrative HISTORY OF PRESENT ILLNESS: Elisa Copeland is a 27 year old female in her teens noted to have heavy periods, MERARI, went to to [facility], diagnosed with vWD. Has taken stimate in past. Had teeth pulled for activities director scouting, no problems with bleeding, but did take a liquid by mouth for a week prior. Periods now not heavy. Does note easy bruising. Planning to start a family, [facility] No known family history of vWD CLINICAL IMPRESSION: Reported history vWD. Not much bleeding history RECOMMENDATION/PLAN: 1. vWD panel now 2. Likely repeat in third trimester to assess for need for product or DDAVP ante and post Written and verbal health teaching given to patient, patient verbalizes understanding and agrees with treatment plan. PAST MEDICAL HISTORY Diagnosis Date Von Willebrand disease (HCC) PAST SURGICAL HISTORY Procedure Laterality Date APPENDECTOMY FAMILY HISTORY Problem Relation Age of Onset other (MRDD) Sister Breast Cancer Maternal Grandmother Diabetes Maternal Grandfather Diabetes Paternal Grandfather Social History Tobacco Use Smoking status: Never Smokeless tobacco: Never Vaping Use Vaping Use: current everyday user ALLERGIES: ALLERGIES Allergen Reactions Amoxicillin-Pot Cla* Rash CURRENT OUTPATIENT MEDICATIONS: vit no.124/iron/folic ( VITAMIN ORAL) Take 1 tablet by mouth once daily. REVIEW OF SYSTEMS: GENERAL: No fever, night sweats, weight loss or malaise. All other reviewed and negative other than HPI. PHYSICAL EXAMINATION: VITAL SIGNS: BP 116/78 Pulse 87 Temp (Src) 97.8 (Temporal) Ht 5' 2.25 (1.58m) Wt 132 lb 8 oz (60.1kg) SpO2 100% BMI 24.05 kg/(m^2). GENERAL APPEARANCE: Well appearing, in no acute distress, alert and oriented x3, well-hydrated, well nourished. I spent a total of 30 minutes on the date of the service which included preparing to see the patient, [id number] patient care, completing clinical documentation, obtaining and/or reviewing separately obtained history, counseling and educating the patient/family/caregiver, ordering medications, tests, or procedures, independently interpreting results (not separately reported), and communicating results to the patient/family/caregiver. Electronically Signed: Luis Gibson MD June 30, 2023 10:24 AM documented in this encounter [facility] 06-23-2023 Miscellaneous Notes Formattin g of this note might be different from the original. Spoke to pt and scheduled Placed red folder in appointments file at PSS desk Attempted to call patient and schedule her for a new patient consultation with Dr. Gibson for Von Willebrand disease. Referring provider is Susanna Teran DO. Please schedule patient in first available slot with Dr. Gibson Patient folder sat beside printer in hem/onc office Sabrina documented in this encounter [facility] Bleeding- Primary Hemorrhage, unspecified [facility] Bleeding- Primary Hemorrhage, unspecified [facility] Diagnosis Bleeding- Primary Hemorrhage, unspecified documented in this encounter [facility] Summary Purpose Family History No Family History Records FoundNo Family History Records FoundNo Family History Records FoundNo Family History Records FoundNo Family History Records FoundNo Family History Records Found Advance Directives No Advanced Directives Records FoundNo Advanced Directives Records FoundNo Advanced Directives Records FoundNo Advanced Directives Records FoundNo Advanced Directives Records FoundNo Advanced Directives Records Found Additional Source Comments INFORMATION SOURCE (unrecogn ized section and content) DATE CREATED AUTHOR AUTHOR'S ORGANIZ ATION 06/01/2019 [facility] DATE CREATED AUTHOR AUTHOR'S ORGANIZ ATION 12/28/2019 [facility] DATE CREATED AUTHOR AUTHOR'S ORGANIZ ATION 09/02/2021 [facility] DATE CREATED AUTHOR AUTHOR'S ORGANIZ ATION 11/01/2023 [facility] DATE CREATED AUTHOR AUTHOR'S ORGANIZ ATION 12/31/2023 [facility] Source Comments (unrecognize d section and content) In the event this informatio n is protected by the Federal Confidentiality of Alcohol and Drug Abuse Patient Records regulations: The Federal rules restrict any use of the information to criminally investigate or prosecute any alcohol or drug abuse [facility] event this information is protected by the Federal Confidentiality of Alcohol and Drug Abuse Patient Records regulations: The Federal rules restrict any use of the information to criminally investigate or prosecute any alcohol or drug abuse patient.[facility] the event this information is protected by the Federal Confidentiality of Alcohol and Drug Abuse Patient Records regulations: The Federal rules restrict any use of the information to criminally investigate or prosecute any alcohol or drug abuse patient.[facility] the event this information is protected by the Federal Confidentiality of Alcohol and Drug Abuse Patient Records regulations: The Federal rules restrict any use of the information to criminally investigate or prosecute any alcohol or drug abuse patient.[facility] the event this information is protected by the Federal Confidentiality of Alcohol and Drug Abuse Patient Records regulations: The Federal rules restrict any use of the information to criminally investigate or prosecute any alcohol or drug abuse patient.[facility] the event this information is protected by the Federal Confidentiality of Alcohol and Drug Abuse Patient Records regulations: The Federal rules restrict any use of the information to criminally investigate or prosecute any alcohol or drug abuse patient.[facility] Reason for Visit (unrecogniz ed section and content) Reason Comments New Patient Evaluation Reason Comments AVS 06/30 Reason Comments Patient Question Reason Comments Orders Care Teams (unrecognized sec tion and content) Tier Over Relationship Specialty [place] [address] [place] [address] Hematology/Oncology 06/30/23 Tier Over Relationship Specialty [place] [id number] [place], [place] [id number] Hematology/Oncology 06/30/23 Tier Over Relationship Specialty [place] [address] [place], [place] [id number] Hematology/Oncology 06/30/23 FOR RECORDS PERTAINING TO PATIENTS WHO ARE OR HAVE BEEN ENROLLED IN A CHEMICAL DEPENDENCY/SUBSTANCEABUSE PROGRAM, SOME INFORMATION MAY BE OMITTED. This clinical summary was aggregated from multiple sources. Caution should be exercised in using it in the provision of clinical care. This summary normalizes information from multiple sources, and as a consequence, information in this document may materially change the coding, format and clinical context of patient data. In addition, data may be omitted in some cases. CLINICAL DECISIONS SHOULD BE BASED ON THE PRIMARY CLINICAL RECORDS. [facility] [employer] [facility]. provides no warranty or guarantee of the accuracy or completeness of information in this document.
[2024-01-05 11:32] LABS: Glucose GTT-Gestation. Fasting 83 mg/dL (<105)
[2024-01-05 11:56] LABS: Glucose GTT-Gestational 1 Hr 180 mg/dL (<190)
[2024-01-05 13:45] LABS: Glucose GTT-Gestational 2 Hr 153 mg/dL (<165)
[2024-01-05 13:56] LABS: Glucose GTT-Gestational 3 Hr 100 L (<145)
== END | disposition home or self-care (01) ==
LOC: LAB 10:02
PROVIDERS: PCP Internal Medicine; Referring Provider Obstetrics & Gynecology; Visit Provider Obstetrics & Gynecology
DX: Z13.1 Encounter for screening for diabetes mellitus (principal)
CPT/HCPCS: 36415; 82951; 82952

== ENCOUNTER 2024-01-12 13:50 | Outpatient (CLI) | payer BC, SELFPAY ==
[2024-01-12] VITALS (8 sets, daily range): BP systolic 139–148; BP diastolic 71–77; PULSE 109–123; TEMP 36.8; O2SAT 98; BMI 32.5
[2024-01-12 14:38] LABS: Hematocrit 33.3 % (37-47); Hemoglobin 11.1 g/dL (12.0-15.0); Mean Corp Hgb Conc 33.3 g/dL (32-36); Mean Corpuscular Hgb 30.7 pg (27.0-32.0); Mean Platelet Vol. 9.8 fl (6.2-12.0); Platelet Count 251 K/mm3 (150-450); RBC Distribution Width CV 12.5 % (11.6-14.6); Red Blood Count 3.62 M/mm3 (4.2-5.4)
[2024-01-12 14:57] LABS: Protein, Urine (Random) 8.8 mg/dL (<11.9); Protein:Creat Ratio 186 mg/g CRE (0-200)
[2024-01-12 14:58] LABS: ALB/GLOB Ratio 0.9 RATIO (0.9-2.4); AST(SGOT) 14 U/L (15-37); Alanine Aminotransfer ALT/SGPT 27 U/L (13-56); Albumin, Serum 3.1 g/dL (3.2-5.0); Alkaline Phosphatase 77 U/L (45-117); Anion Gap 5 (5-15); BUN 6 mg/dL (7-18); BUN/Creat Ratio 10.8 RATIO (10-20); Chloride 108 mmol/L (98-107); Creatinine, Serum 0.56 mg/dL (0.55-1.02); EST Glomerular Filtration Rate 139 mL/min (>60); Est Glom Filt Rate - Afr Amer 169 mL/min (>60); Estimated Creatinine Clearance 150.01 ml/min; Globulin 3.6 g/dL (2.2-4.2); Glucose 125 mg/dL (74-106); Potassium 3.4 mmol/L (3.5-5.1); Protein, Total 6.7 g/dL (6.4-8.2); Sodium Level 135 mmol/L (136-145); Uric Acid 3.5 mg/dL (2.6-6.0)
--- NOTE | 2024-01-12 21:15 | OB.TRI.HP_ITS ---
HPI - General General Date of Service: 01/12/24 Chief Complaint: elevated BP in office HPI Narrative ELISA COPELAND, is a 28 F who presents at 30+1 with elevated BP in office sent for PEC work up. right sided headache, improved with tylenol. +FM, denies ctx/lof/vb Maternal Data Information NORMAN Calculator Estimated Delivery Date Method Current WG Current Estimate 03/21/24 LMP (Certain) 30w 1d Other Estimates 03/18/24 Ultrasound #1 30w 4d PFSH PFSH Medical History Anemia Anxiety and depression Mild type 1 von Willebrand disease Home Medications docosahexaenoic acid 200 mg capsule ( DHA) See Rx Instructions PO .COMPLEX 08/18/23 [History Last Taken 01/11/24 20:00 1 tab] Allergy/AdvReac Type Severity Reaction Status Date / Time amoxicillin [From Augmentin] Allergy Hives Verified 01/12/24 14:21 clavulanic acid Allergy Hives Verified 01/12/24 14:21 [From Augmentin] Family History Grandfather Diabetes CVA (cerebral vascular accident) Grandmother Myocardial infarction Diabetes Mother BRCA positive Other Breast cancer Surgical History History of colonoscopy (~2010) S/P appendectomy Social History adopted: No household members: spouse current occupational status: employed current occupation: [employer] current occupational exposures/hazards: Yes pets and animals: No history of recent travel: No sexually active: Yes Smoking Status: Former smoker alcohol intake: never substance use type: does not use caffeine: Yes what type of physical activity do you participate in: none seatbelt use: always do you feel safe at home: Yes additional social history: - Ishaan History 2 Elective abortions 1 Hx Para 0 Spontaneous abortions Hx # Term Pregnancies Ectopic pregnancies Hx # Pregnancies Multiple births # of living children Visit Details Expected Delivery Route/Plan Labor Preferences- CB/BF classes: [] labor support person: [] labor intervention preferences: [] pain management options preferred: [] cut cord/dad catch: [] : [] PP control planned: [] discussed possible routes of delivery and associated risks: [] special requests: [] Plans Covid status: [] Flu vaccine: [] Tdap vaccine: [] Rhogam: O pos LARC form signed: [] Problem list reviewed and updated with the most current plan of care details and appropriate orders placed. Relevant counseling for the gestational age provided. Continue routine care and follow up unless otherwise noted in visit notes/problem list details OB Flowsheet Initial Weight: Not Recorded Date -?-?-?-?-?-?-?-?-?-?-?-?- EGA Weight BP Urine Prot -?-?-?-?-?-?-?-?-?-?-?-?- Glucose FHR FuHt Pres Dilation -?-?-?-?-?-?-?-?-?-?-?-?- Effaced St Visit Note 08/18/23 -?-?-?-?-?-?-?-?-?-?-?-?- 9w 1d 132 lb 4 oz 124/82 -?-?-?-?-?-?-?-?-?-?-?-?- 171 -?-?-?-?-?-?-?-?-?-?-?-?- KW-CRL cons with dates. no concerns today. KW-CRL cons with dates. no c oncerns today. did have some spotting and was in ER last week. resolving. 09/15/23 -?-?-?-?-?-?-?-?-?-?-?-?- 13w 1d 131 lb 6 oz 125/80 Nega tive -?-?-?-?-?-?-?-?-?-?-?-?- Negative 165 -?-?-?-?-?-?-?-?-?-?-?-?- JV- no further s potting. placenta may be growing near the cervix. we discussed pelvic rest until at least anatomy scan. 10/13/23 -?-?-?-?-?-?-?-?-?-?-?-?- 17w 1d 140 lb 139/85 Negative -?-?-?-?-?-?-?-?-?-?-?-?- Negative 144 -?-?-?-?-?-?-?-?-?-?-?-?- JV- no lof, vagi nal bleeding, or cramping. has anatomy scan scheduled. cintia gates today. 11/09/23 -?-?-?-?-?-?-?-?-?-?-?-?- 21w 0d 156 lb 137/84 Negative -?-?-?-?-?-?-?-?-?-?-?-?- Negative 154 -?-?-?-?-?-?-?-?-?-?-?-?- MH-No VB, Crampi ng. Feeling movement. Denies concerns. Discussed wt gain. Flu vaccine given 12/08/23 -?-?-?-?-?-?-?-?-?-?-?-?- 25w 1d 166 lb 114/78 Negative -?-?-?-?-?-?-?-?-?-?-?-?- Negative 145 26 -?-?-?-?-?-?-?-?-?-?-?-?- SM- no vb lof go od fm no regular ctx SM- no vb lof good fm no reg ular ctx, discussed needs fu of hematology to clarify bleeding disorder. discussed weight gain and increased swelling in hands and feet. 12/22/23 -?-?-?-?-?-?-?-?-?-?-?-?- 27w 1d 169 lb 126/83 Negative -?-?-?-?-?-?-?-?-?-?--?-?- Negative 145 27 -?-?-?-?-?-?-?-?-?-?-?-?- SM- no vb lof go od fm no regular ctx follows up with heme next week 01/12/24 -?-?-?-?-?-?-?-?-?-?-?-?- 30w 1d 179 lb 154/84 147/84 Negative -?-?-?-?-?-?-?-?-?-?-?-?- Negative 153 30 -?-?-?-?-?-?-?-?-?-?-?-?- JV- tdap done to day. no lof, vaginal bleeding, or dec fm. JV- tdap done today. no lof, vaginal bleeding, or dec fm. she has a mild headache and bp is elevated x 3 here. sending to L&D to rule out pre-e NST FHR Rate Baby A Baseline: 140 Variability:: Moderate Accelerations:: 15 x 15 Decelerations:: None NST Reactive:: Yes FHR Category:: Category I Uterine Activity:: none Assessment & Plan (1) Elevated BP without diagnosis of hypertension: COMMENT: negative PEC work up. assigned to tele program for BP monitoring at home. f/u in office in 1 week. PEC s/sx reviewed. PLAN: Plan Patient presents for triage evaluation secondary to elevated BP in office. PEC labs normal. BP 130-140/70s. no further s/sx of PEC. FHT: Moderate variability reactive no decelerations category I tracing [place]: Contractions Assessment and plan: Reactive NST, reassuring maternal and status patient discharged to home to follow-up in office and complete home BP atleast 2xdaily. See problem list details for additional plan information. Charges/Coding Procedures Urinary/Genital 52xxx-59xxx: [id number] non-stress test Interp
== END 2024-01-12 16:17 | disposition home or self-care (01) ==
LOC: WPOUT 13:54 → WP 13:55
PROVIDERS: PCP Internal Medicine; Referring Provider Registered Nurse; Visit Provider Registered Nurse
DX: O99.891 Other specified diseases and conditions complicating pregnancy (principal); Z87.891 Personal history of nicotine dependence; R03.0 Elevated blood-pressure reading, without diagnosis of hypertension; R51.9 Headache, unspecified; Z3A.00 Weeks of gestation of pregnancy not specified
CPT/HCPCS: 36415; 59025; 59050; 80053; 82570; 84156; 84550; 85027; 99221; G0378

== ENCOUNTER 2024-01-18 13:55 | Outpatient (CLI) | payer BC, SELFPAY ==
[2024-01-12 14:13] VITALS: RESP 16
[2024-01-18] VITALS (11 sets, daily range): BP systolic 128–142; BP diastolic 75–86; PULSE 100–123; RESP 17; TEMP 36.7; O2SAT 98; BMI 32.8
[2024-01-18 15:48] LABS: Hematocrit 35.1 % (37-47); Hemoglobin 11.6 g/dL (12.0-15.0); Mean Corpuscular Hgb 30.3 pg (27.0-32.0); Mean Corpuscular Volume 91.6 fL (81-99); Mean Platelet Vol. 9.9 fl (6.2-12.0); Platelet Count 268 K/mm3 (150-450); RBC Distribution Width CV 12.5 % (11.6-14.6); RBC Distribution Width SD 41.3 fl (35.1-43.9); Red Blood Count 3.83 M/mm3 (4.2-5.4); White Blood Count 14.8 K/mm3 (4.4-11.0)
[2024-01-18 15:51] LABS: AST(SGOT) 11 U/L (15-37); Alanine Aminotransfer ALT/SGPT 18 U/L (13-56); Creatinine, Serum 0.52 mg/dL (0.55-1.02); EST Glomerular Filtration Rate 152 mL/min (>60); Est Glom Filt Rate - Afr Amer 183 mL/min (>60); Estimated Creatinine Clearance 161.97 ml/min
[2024-01-18 15:54] LABS: Protein, Urine (Random) 11.5 mg/dL (<11.9); Protein:Creat Ratio 196 mg/g CRE (0-200)
--- NOTE | 2024-01-19 02:49 | OB.TRI.PN ---
Progress Notes Date of Service: 01/18/24 Progress Note: Patient presents for triage evaluation secondary to elevated bps at home FHT: 140 Moderate variability reactive no decelerations category I tracing [place]: no regular Contractions Assessment and plan: elevated bps Reactive NST, reassuring maternal and status patient discharged to home to follow-up as scheduled. See problem list details for additional plan information. Laboratory Studies: Laboratory Tests 01/18/24 Range/Units 15:30 WBC 14.8 H (4.4-11.0) K/mm3 RBC 3.83 L (4.2-5.4) M/mm3 Hgb 11.6 L (12.0-15.0) g/dL Hct 35.1 L (37-47) % MCV 91.6 (81-99) fL MCH 30.3 (27.0-32.0) pg MCHC 33.0 (32-36) g/dL RDW Std Deviation 41.3 (35.1-43.9) fl RDW Coeff of Talon 12.5 (11.6-14.6) % Plt Count 268 (150-450) K/mm3 MPV 9.9 (6.2-12.0) fl Creatinine 0.52 L (0.55-1.02) mg/dL Estim Creat Clear Calc 161.97 ml/min Est GFR (MDRD) Af Amer 183 (>60) mL/min Est GFR (MDRD) Non-Af 152 (>60) mL/min Uric Acid 3.0 (2.6-6.0) mg/dL AST 11 L (15-37) U/L ALT 18 (13-56) U/L U Random Total Protein 11.5 (<11.9) mg/dL Urine Creatinine 58.80 (NO RANGE EST.) mg/dL Protein/Creatinin Ratio 196 (0-200) mg/g CRE Charges/Coding Procedures Urinary/Genital 52xxx-59xxx: 40154-61 non-stress test Interp
== END 2024-01-18 16:45 | disposition home or self-care (01) ==
LOC: WPOUT 13:57 → WP 13:59
PROVIDERS: PCP Internal Medicine; Referring Provider Obstetrics & Gynecology; Visit Provider Obstetrics & Gynecology
DX: O99.891 Other specified diseases and conditions complicating pregnancy (principal); R03.0 Elevated blood-pressure reading, without diagnosis of hypertension; Z3A.00 Weeks of gestation of pregnancy not specified
CPT/HCPCS: 36415; 59025; 59050; 82565; 82570; 84156; 84450; 84460; 84550; 85027

== ENCOUNTER → 2024-01-25 | Outpatient (CLI) | payer BC, SELFPAY ==
--- NOTE | 2024-01-25 12:18 | US_ITS ---
STUDY: SECOND AND THIRD TRIMESTER OBSTETRICAL ULTRASOUND - LIMITED REASON FOR EXAM: Female, 28 years old growth LMP: June 15, 2023. PRIOR ULTRASOUND: Comparison is made with prior study dated August 10, 2023. TECHNIQUE: Transabdominal TECHNICAL QUALITY: Adequate. FINDINGS: There is a single intrauterine fetus. The fetus is in a cephalic presentation. There is demonstrated cardiac activity with a heart rate of 132 bpm. There is a normal amniotic fluid volume. The largest amniotic fluid pocket measures 4.59 cm. The amniotic fluid index (RAYMUNDO) is 12.2 cm. The placenta is anterior in location and is not low lying. There are Grade 2 placental changes. The cervical length was not measured due to the head position. BIOMETRY: BPD: 8.06 cm: 32 weeks, 3 days HC: 29.34 cm: 32 weeks, 3 days AC: 29.21 cm: 33 weeks, 1 days FL: 6.01 cm: 31 weeks, 2 days Age by LMP: 32 weeks, 0 days. NORMAN by LMP: March 21, 2024. age by current US: 32 weeks, 2 days. NORMAN by current US: March 19, 2024. Estimated weight: 2009 grams, +/- 301 grams, 59 percentile. US/OB Limited With Biometrics IMPRESSION: Single live intrauterine gestation with mean gestational age of 32 weeks and 2 days. Electronically Signed: Ammon Parker MD at 12:18 EDT ,
== END | disposition home or self-care (01) ==
LOC: US 12:17
PROVIDERS: PCP Internal Medicine; Referring Provider Advanced Practice Midwife; Visit Provider Advanced Practice Midwife
DX: Z36.89 Encounter for other specified antenatal screening (principal); O99.891 Other specified diseases and conditions complicating pregnancy; R03.0 Elevated blood-pressure reading, without diagnosis of hypertension; Z3A.32 32 weeks gestation of pregnancy
CPT/HCPCS: 76816

== ENCOUNTER → 2024-01-26 | Outpatient (CLI) | payer BC, SELFPAY ==
[2024-01-26 14:54] LABS: Absolute Lymphocyte Count 1.69 X10^3/uL (0.83-4.51); Absolute Neutrophil Count 9.6 X10^3/uL (2.0-7.7); Basophil# 0.06 X10^3/uL; Basophil% 0.5 % (0-1); Eosinophil# 0.11 X10^3/uL; Eosinophils% 0.9 % (0-5); Hematocrit 34.3 % (37-47); Hemoglobin 11.4 g/dL (12.0-15.0); Lymphocyte # 1.69 X10^3/ul (0.83-4.51); Lymphocyte % 13.1 % (19-41); Mean Corp Hgb Conc 33.2 g/dL (32-36); Mean Corpuscular Hgb 30.2 pg (27.0-32.0); Mean Corpuscular Volume 90.7 fL (81-99); Mean Platelet Vol. 9.5 fl (6.2-12.0); Monocyte# 1.14 X10^3/uL; Monocyte% 8.9 % (0-10); NRBC Flagged by Analyzer 0 % (0-5); Neutrophil # 9.56 X10^3/uL (2.7-7.7); Neutrophil % 74.3 % (47-70); Platelet Count 246 K/mm3 (150-450); RBC Distribution Width CV 12.4 % (11.6-14.6); RBC Distribution Width SD 40.6 fl (35.1-43.9); Red Blood Count 3.78 M/mm3 (4.2-5.4); White Blood Count 12.9 K/mm3 (4.4-11.0)
[2024-01-26 15:27] LABS: ALB/GLOB Ratio 0.9 RATIO (0.9-2.4); AST(SGOT) 18 U/L (15-37); Alanine Aminotransfer ALT/SGPT 21 U/L (13-56); Albumin, Serum 3.2 g/dL (3.2-5.0); Alkaline Phosphatase 80 U/L (45-117); Anion Gap 8 (5-15); BUN 8 mg/dL (7-18); BUN/Creat Ratio 14.1 RATIO (10-20); Calcium,Total 9.6 mg/dL (8.5-10.1); Chloride 105 mmol/L (98-107); Creatinine, Serum 0.57 mg/dL (0.55-1.02); EST Glomerular Filtration Rate 137 mL/min (>60); Est Glom Filt Rate - Afr Amer 166 mL/min (>60); Globulin 3.7 g/dL (2.2-4.2); Glucose 81 mg/dL (74-106); Potassium 3.8 mmol/L (3.5-5.1); Protein, Total 6.9 g/dL (6.4-8.2); Sodium Level 136 mmol/L (136-145)
--- OUTSIDE RECORDS SUMMARY | 2024-01-26 18:58 | XMS RPT_ITS | CCD ---
Author Name Unknown Address [address] [place] [address] Organization [facility] Care Team Providers Care Sound Ranging Crewmember Name Role Phone DAISY ROGERS Attending PHYSICIAN Derek Primary Care Unavailable Unavailable Primary Care Provider Luis Dawson MD Unavailable [phone] MILO LOVETT Primary Care Unavailable PASCALE SINGER Referring PASCALE Richardson Attending LUIS Jang Referring Unavailable LUIS GIBSON Referring Unavailable SUSANNA TERAN Referring Unavailable LUIS GIBSON Attending Unavailable Allergies Allergy Classification Reported Allergen(s) Allergy Type Date of Onset Reaction(s) Facility (8 sources) AMOXICILLIN-POT CLAVULANATE; Translations: [AMOXICILLIN-POT CLAVULANATE] Propensity to adverse reactions to drug (disorder) 1 [facility] Repository (1 source) Aspirin; Translations: [ASPIRIN] Drug Allergy 3 [facility] Repository (1 source) NSAIDs; Translations: [NSAIDS] Propensity to adverse reactions to drug (disorder) 3 [facility] Repository Medications Completed/Discontinued Medications Medication Drug Class(es) [...] 158.1 cm Luis Gibson MD Work Phone: [facility] 06-30-2023 10:16-0400 Body temperature 97.81 [degF] Luis Gibson MD Work Phone: [facility] 06-30-2023 10:16-0400 Body weight 60.1 kg Luis Gibson MD Work Phone: [facility] 06-30-2023 10:16-0400 Diastolic blood pressure 78 mm[Hg] Luis Gibson MD Work Phone: [facility] 06-30-2023 10:16-0400 Heart rate 87 /min Luis Gibson MD Work Phone: [facility] 06-30-2023 10:16-0400 SaO2% (BldA) [Mass fraction] 100 % Luis Gibson MD Work Phone: [facility] 06-30-2023 10:16-0400 Systolic blood pressure 116 mm[Hg] Luis Gibson MD Work Phone: [facility] Encounters Encounter Date Encounter Type Care Provider Facility Start: 01-05-2024 End: 01-06-2024 ambulatory LUIS GIBSON Facility:[facility] Start: 12-29-2023 ambulatory LUIS GIBSON Facilit y:[facility] Start: 12-11-2023 Telephone encounter Luis carpio MD Work Phone: Hematology/Oncology Plan of Treatment Date Care Activity Detail Author Start: 12-12-2023 End: 03-12-2024 PLATELET AGGREGATION PANEL PLATELET AGGREGATION PANEL Lab Routine Bleeding Expected: 12/12/2023, Expires: 03/12/2024 [facility] Work Phone: Payers Date Payer Category Payer Unknown [employer] PPO [id number] 2022-Present [phone] [address] [place] [address] PPO [id number] 2022 Unknown [id number] 2022 Unknown [id number] 2021 Worker's Compensation [id number] 1997 Unknown [id number] 1997 Unknown [id number] 1997 Unknown [id number] 1997 Unknown [id number] Unknown [id number] Unknown [id number] Unknown [id number] Unknown [id number] Social History Date Type Detail Facility Tobacco smoking stat [facility] Tobacco smoking consumption unknown [facility] Start: 1995 Sex Assigned At Not on file [facility] Start: 06-30-2023 Gender identity Not on file [facility] Start: 06-30-2023 Tobacco smoking stat [facility] Never smoked tobacco [facility] Start: 06-30-2023 Tobacco use and exposure Smokeless t obacco non-user [facility] Start: 06-30-2023 History of Social function [facility] Clinical Notes 06-23-2023 to 12-21-2023 [...] and unable to reach [facility] 2 [place] ATTEMPT Linda Muñoz Spoke with pt did not have insurance card as card in system is rejecting. Will call pt tomorrow PSS: lab order placed. please call patient to schedule. Marisel Hill, MARYANNE Patient calling asking for a new lab order due to missing her lab appointment in July. Please advise and call patient documented in this encounter [facility] 08-02-2023 Miscellaneous Notes Formattin g of this note might be different from the original. Spoke to patient re coagulation evaluation.so will check platelet aggregation. She takes no aspirin, NSAIDs antihistamines or supplements, only a pre vitamin She is 7 weeks at this time. Luis Gibson MD August 02, 2023 documented in this encounter [facility] 08-01-2023 Miscellaneous Notes Formattin g [...] August 01, 2023 documented in this encounter [facility] 06-30-2023 Miscellaneous Notes Formattin g of this note might be different from the original. Dr Gibson stated no F/U was needed. Michelle Lopez LPN No AVS at check out only one lab order placed. Please advise on scheduling Thank you! documented in this encounter [facility] 06-30-2023 Note HNO ID: [id number] Author: Luis Gibson MD Service: ? Author Type: Physician Type: Progress Notes Filed: 06/30/2023 1:03 PM Note Text: HISTORY OF PRESENT ILLNESS: Elisa Copeland is a 27 year old female in her teens noted to have heavy periods, MERARI, went to to [facility], diagnosed with vWD. Has taken stimate in past. Had teeth pulled for remote inpatient coder, no problems with bleeding, but did take a liquid by mouth for a week prior. Periods now not heavy. Does note easy bruising. Planning to start a family, [facility] No known family history [...] which included preparing to see the patient, [id number] patient care, completing clinical documentation, obtaining and/or reviewing separately obtained history, counseling and educating the patient/family/caregiver, ordering medications, tests, or procedures, independently interpreting results (not separately reported), and communicating results to the patient/family/caregiver. Electronically Signed: Luis Gibson MD June 30, 2023 10:24 AM [facility] 06-30-2023 History of Presen t illness Narrative HISTORY OF PRESENT ILLNESS: Elisa Copeland is a 27 year old female in her teens noted to have heavy periods, MERARI, went to to [facility], diagnosed with vWD. Has taken stimate in past. Had teeth pulled for remote inpatient coder, no problems with bleeding, but did take a liquid by mouth for a week prior. Periods now not heavy. Does note easy bruising. Planning to start a family, [facility] No known family [...] which included preparing to see the patient, [id number] patient care, completing clinical documentation, obtaining and/or reviewing separately obtained history, counseling and educating the patient/family/caregiver, ordering medications, tests, or procedures, independently interpreting results (not separately reported), and communicating results to the patient/family/caregiver. Electronically Signed: Luis Gibson MD June 30, 2023 10:24 AM documented in this encounter [facility] 06-23-2023 Miscellaneous Notes Formattin g [...] hem/onc office Sabrina documented in this encounter [facility] Diagnosis Bleeding- Primary Hemorrhage, unspecified [facility] Diagnosis Bleeding- Primary Hemorrhage, unspecified [facility] in [facility] Diagnosis Bleeding- Primary Hemorrhage, unspecified documented in this encounter [facility] Summary Purpose Family History No [...] DATE CREATED AUTHOR AUTHOR'S ORGANIZ ATION 06/01/2019 [facility] DATE CREATED AUTHOR AUTHOR'S ORGANIZ ATION 12/28/2019 [facility] DATE CREATED AUTHOR AUTHOR'S ORGANIZ ATION 09/02/2021 [facility] DATE CREATED AUTHOR AUTHOR'S ORGANIZ ATION 11/01/2023 [facility] DATE CREATED AUTHOR AUTHOR'S ORGANIZ ATION 01/12/2024 [facility] Source Comments (unrecognize d section and content) In the event this informatio n is protected by the Federal Confidentiality of Alcohol and Drug Abuse Patient Records regulations: The Federal rules restrict any use of the information to criminally investigate or prosecute any alcohol or drug abuse patient.[facility] the event this information is protected by the Federal Confidentiality of Alcohol and Drug Abuse Patient Records regulations: The Federal rules restrict any use of the information to criminally investigate or prosecute any alcohol or drug abuse patient.[facility] the event this information is protected by the Federal Confidentiality of Alcohol and Drug Abuse Patient Records regulations: The Federal rules restrict any use of the information to criminally investigate or prosecute any alcohol or drug abuse patient.[facility] the event this information is protected by the Federal Confidentiality of Alcohol and Drug Abuse Patient Records regulations: The Federal rules restrict any use of the information to criminally investigate or prosecute any alcohol or drug abuse patient.[facility] the event this information is protected by the Federal Confidentiality of Alcohol and Drug Abuse Patient Records regulations: The Federal rules restrict any use of the information to criminally investigate or prosecute any alcohol or drug abuse patient.[facility] the event this information is protected by the Federal Confidentiality of Alcohol and Drug Abuse Patient Records regulations: The Federal rules restrict any use of the information to criminally investigate or prosecute any alcohol or drug abuse patient.[facility] Reason for Visit (unrecogniz ed section and content) Reason Comments New Patient Evaluation Reason Comments AVS 06/30 Reason Comments Patient Question Reason Comments Orders Care Teams (unrecognized sec tion and content) Sound Ranging Crewmember Relationship Specialty [place] [id number] [id number] Hematology/Oncology 06/30/23 Sound Ranging Crewmember Relationship Specialty [place] [id number] [address] [id number] Hematology/Oncology 06/30/23 Sound Ranging Crewmember Relationship Specialty [place] [address] [place] [address] Hematology/Oncology 06/30/23 FOR RECORDS PERTAINING TO PATIENTS [...] BE BASED ON THE PRIMARY CLINICAL RECORDS. [facility] Zapproved [facility]. provides no warranty or guarantee of the accuracy or completeness of information in this document.
[2024-01-26 19:18] LABS: Protein:Creat Ratio 119 mg/g CRE (0-200)
== END | disposition home or self-care (01) ==
PROVIDERS: PCP Internal Medicine; Referring Provider Obstetrics & Gynecology; Visit Provider Obstetrics & Gynecology
DX: R03.0 Elevated blood-pressure reading, without diagnosis of hypertension (principal)
CPT/HCPCS: 36415; 80053; 82570; 84156; 85025

== ENCOUNTER → 2024-01-31 | Outpatient (CLI) | payer BC, SELFPAY ==
--- NOTE | 2024-01-31 11:03 | US_ITS ---
STUDY: OBSTETRICAL ULTRASOUND - BIOPHYSICAL PROFILE REASON FOR EXAM: Female, 28 years old non reactive NST LMP: June 15, 2023. PRIOR ULTRASOUND: Comparison is made with prior study January 25, 2024. TECHNIQUE: Transabdominal TECHNICAL QUALITY: Adequate. FINDINGS: There is a single intrauterine fetus. The fetus is in a cephalic presentation. There is demonstrated cardiac activity with a heart rate of 131 bpm. There is a normal amniotic fluid volume. The largest amniotic fluid pocket measures 3.9 cm. The amniotic fluid index (RAYMUNDO) is 10.9 cm. The placenta is anterior in location and is not low lying. There are Grade 2 placental changes. Age by LMP: 32 weeks, 6 days. NORMAN by LMP: March 21, 2024. age by prior US: 33 weeks, 1 days. NORMAN by prior US: March 19, 2024. BIOPHYSICAL PROFILE: Breathing Movements (FBM): 2 Gross Body Movements (GBM): 2 Tone (FT): 2 Amniotic Fluid Volume (AFV): 2 TOTAL SCORE: 8 / 8 US/Biophysical Prof W/O Non Stres IMPRESSION: Normal biophysical profile of 8/8. Electronically Signed: Ammon Parker MD at 12:17 EDT ,
== END | disposition home or self-care (01) ==
LOC: US 10:55
PROVIDERS: PCP Internal Medicine; Referring Provider Obstetrics & Gynecology; Visit Provider Obstetrics & Gynecology
DX: O28.8 Other abnormal findings on antenatal screening of mother (principal); Z3A.00 Weeks of gestation of pregnancy not specified
CPT/HCPCS: 76819

== ENCOUNTER 2024-02-02 15:07 | Outpatient (CLI) | payer BC, SELFPAY ==
[2024-02-02 15:43] LABS: Hematocrit 34.5 % (37-47); Hemoglobin 11.1 g/dL (12.0-15.0); Mean Corp Hgb Conc 32.2 g/dL (32-36); Mean Corpuscular Hgb 29.5 pg (27.0-32.0); Mean Corpuscular Volume 91.8 fL (81-99); Mean Platelet Vol. 9.9 fl (6.2-12.0); Platelet Count 237 K/mm3 (150-450); RBC Distribution Width CV 12.2 % (11.6-14.6); Red Blood Count 3.76 M/mm3 (4.2-5.4); White Blood Count 13.4 K/mm3 (4.4-11.0)
[2024-02-02] MEDS: Betamethasone/Betamethasone 30 MG/5 ML Vial 12 MG IM (15:44)
[2024-02-02] MEDS: Labetalol 100 MG Tablet PO (15:44)
[2024-02-02 15:45] VITALS: BP 139/81; PULSE 109
[2024-02-02 15:49] VITALS: BMI 33.5
[2024-02-02 15:52] VITALS: BP 136/79; PULSE 104
[2024-02-02 15:54] LABS: AST(SGOT) 12 U/L (15-37); Alanine Aminotransfer ALT/SGPT 20 U/L (13-56); Creatinine, Serum 0.58 mg/dL (0.55-1.02); EST Glomerular Filtration Rate 134 mL/min (>60); Est Glom Filt Rate - Afr Amer 162 mL/min (>60); Estimated Creatinine Clearance 147.07 ml/min; Uric Acid 3.3 mg/dL (2.6-6.0)
[2024-02-02 16:07] VITALS: BP 135/78; PULSE 111
--- NOTE | 2024-02-02 16:10 | OB.TRI.PN ---
Progress Notes Date of Service: 02/02/24 Progress Note: Patient presents for triage evaluation secondary to elevated bp in office FHT: 135 Moderate variability reactive no decelerations category I tracing [place]: no Contractions Assessment and plan: Reactive NST in office, pre e labs normal, labetalol 100mg started, reassuring maternal and status patient discharged to home to follow-up in office as scheduled. See problem list details for additional plan information. Laboratory Studies: Laboratory Tests 02/02/24 Range/Units 15:25 WBC 13.4 H (4.4-11.0) K/mm3 RBC 3.76 L (4.2-5.4) M/mm3 Hgb 11.1 L (12.0-15.0) g/dL Hct 34.5 L (37-47) % MCV 91.8 (81-99) fL MCH 29.5 (27.0-32.0) pg MCHC 32.2 (32-36) g/dL RDW Std Deviation 41.0 (35.1-43.9) fl RDW Coeff of Talon 12.2 (11.6-14.6) % Plt Count 237 (150-450) K/mm3 MPV 9.9 (6.2-12.0) fl Creatinine 0.58 (0.55-1.02) mg/dL Estim Creat Clear Calc 147.07 ml/min Est GFR (MDRD) Af Amer 162 (>60) mL/min Est GFR (MDRD) Non-Af 134 (>60) mL/min Uric Acid 3.3 (2.6-6.0) mg/dL AST 12 L (15-37) U/L ALT 20 (13-56) U/L Charges/Coding Multi Select Codes Urinary/Genital Urinary/Genital CPT Codes: No Charge Assessment & Plan (1) Gestational hypertension: COMMENT: intermittent bps elevated at home. not consistent. no meds at present. recommend nsts and growth us q 4 weeks, reduced work hours. 32 week-59% nl RAYMUNDO (2) Abnormal glucose affecting : COMMENT: 3 hour ordered (3) Family history of deafness and hearing loss: COMMENT: sister (4) Mild type 1 von Willebrand disease: COMMENT: has home care consultant with [facility]- they told her she doesn't have vWD but her platelets looked sticky and needed follow up. patient seen for consult. - obtain records (5) : QUALIFIERS: Weeks of gestation: 33 weeks Qualified Code(s): Z3A.33 - 33 weeks gestation of COMMENT: NIPT low risk, carrier testing neg. . Nl anatomy (6) Supervision of high risk , antepartum: COMMENT: PRR NORMAN 03/21/24 girl Balwinder : Ishaan (7) Septate uterus affecting : QUALIFIERS: Trimester: second trimester Qualified Code(s): O34.02 - Maternal care for unspecified congenital malformation of uterus, second trimester; Q51.28 - Other and unspecified doubling of uterus
[2024-02-02 16:31] LABS: Protein:Creat Ratio 345 mg/g CRE (0-200)
== END 2024-02-02 16:15 | disposition home or self-care (01) ==
LOC: WPOUT 15:08 → WP 15:09
PROVIDERS: PCP Internal Medicine; Referring Provider Advanced Practice Midwife; Visit Provider Advanced Practice Midwife
DX: O13.3 Gestational [pregnancy-induced] hypertension without significant proteinuria, third trimester (principal); D68.01 Von Willebrand disease, type 1; Z3A.33 33 weeks gestation of pregnancy; O99.113 Other diseases of the blood and blood-forming organs and certain disorders involving the immune mechanism complicating pregnancy, third trimester; O34.03 Maternal care for unspecified congenital malformation of uterus, third trimester; Q51.28 Other and unspecified doubling of uterus; O99.891 Other specified diseases and conditions complicating pregnancy
CPT/HCPCS: 36415; 59025; 59050; 82565; 82570; 84156; 84450; 84460; 84550; 85027; 96372; 99221; G0378; J0702

== ENCOUNTER 2024-02-03 15:15 | Outpatient (CLI) | payer BC, SELFPAY ==
[2024-02-03 15:33] VITALS: BP 128/69; PULSE 108
[2024-02-03 15:34] VITALS: BP 128/69
[2024-02-03] MEDS: Betamethasone/Betamethasone 30 MG/5 ML Vial 12 MG IM (15:39)
--- NOTE | 2024-02-03 16:03 | NURSING ---
Patient expressed concern about being confused on when to take her blood pressure and when to take her newly ordered Labetalol. Spoke with Lindsey Spencer CNM to come up with plan. The plan is to call provider car construction superintendent if BP is 150/90 or higher x2 fifteen minutes apart. Patient is to take her 100mg Labetalol BID about twelve hours apart. Patient took her Labetalol at 0600 and 1300 today. Verbally instructed patient and gave her written instructions as well. Patient expresses understanding. Her next office appointment is this Monday.
--- NOTE | 2024-02-09 14:42 | OB.TRI.PN ---
Progress Notes Date of Service: 02/03/24 Progress Note: at 33 weeks for IM injection of celestone 12mg for history of . Charges/Coding Multi Select Codes Urinary/Genital Urinary/Genital CPT Codes: No Charge
== END 2024-02-03 16:02 | disposition home or self-care (01) ==
LOC: WPOUT 15:19 → WP 15:19
PROVIDERS: PCP Internal Medicine; Visit Provider Advanced Practice Midwife
DX: O09.213 Supervision of pregnancy with history of pre-term labor, third trimester (principal); Z3A.33 33 weeks gestation of pregnancy
CPT/HCPCS: 96372; 99221; G0378; J0702

== ENCOUNTER → 2024-02-09 | Outpatient (CLI) | payer BC, SELFPAY ==
[2024-02-09 16:34] LABS: Absolute Lymphocyte Count 2.06 X10^3/uL (0.83-4.51); Absolute Neutrophil Count 10.6 X10^3/uL (2.0-7.7); Basophil# 0.06 X10^3/uL; Basophil% 0.4 % (0-1); Eosinophil# 0.18 X10^3/uL; Eosinophils% 1.2 % (0-5); Hemoglobin 11.2 g/dL (12.0-15.0); Lymphocyte # 2.06 X10^3/ul (0.83-4.51); Lymphocyte % 13.7 % (19-41); Mean Corp Hgb Conc 32.9 g/dL (32-36); Mean Corpuscular Hgb 30.2 pg (27.0-32.0); Mean Corpuscular Volume 91.6 fL (81-99); Mean Platelet Vol. 9.7 fl (6.2-12.0); Monocyte# 1.68 X10^3/uL; Monocyte% 11.2 % (0-10); NRBC Flagged by Analyzer 0 % (0-5); Neutrophil # 10.62 X10^3/uL (2.7-7.7); Neutrophil % 70.8 % (47-70); POSITIVE DIFFERENTIAL YES; Platelet Count 295 K/mm3 (150-450); RBC Distribution Width CV 12.3 % (11.6-14.6); RBC Distribution Width SD 40.9 fl (35.1-43.9); Red Blood Count 3.71 M/mm3 (4.2-5.4)
[2024-02-09 16:40] LABS: Differential Indicated SCAN CRITERIA MET
[2024-02-09 16:52] LABS: Protein, Urine (Random) 7.3 mg/dL (<11.9); Protein:Creat Ratio 253 mg/g CRE (0-200)
[2024-02-09 16:55] LABS: ALB/GLOB Ratio 0.7 RATIO (0.9-2.4); AST(SGOT) 13 U/L (15-37); Alanine Aminotransfer ALT/SGPT 18 U/L (13-56); Albumin, Serum 2.9 g/dL (3.2-5.0); Alkaline Phosphatase 90 U/L (45-117); Anion Gap 7 (5-15); BUN 8 mg/dL (7-18); Calcium,Total 9.3 mg/dL (8.5-10.1); Chloride 107 mmol/L (98-107); Creatinine, Serum 0.57 mg/dL (0.55-1.02); EST Glomerular Filtration Rate 136 mL/min (>60); Est Glom Filt Rate - Afr Amer 164 mL/min (>60); Globulin 3.9 g/dL (2.2-4.2); Glucose 99 mg/dL (74-106); Protein, Total 6.8 g/dL (6.4-8.2); Sodium Level 138 mmol/L (136-145)
[2024-02-09 17:08] LABS: Differential Comment SCANNED
[2024-02-12 13:24] LABS: Pathologist Review Reviewed
== END | disposition home or self-care (01) ==
LOC: LAB 16:15
PROVIDERS: PCP Internal Medicine; Referring Provider Advanced Practice Midwife; Visit Provider Advanced Practice Midwife
DX: O14.92 Unspecified pre-eclampsia, second trimester (principal); Z3A.00 Weeks of gestation of pregnancy not specified
CPT/HCPCS: 36415; 80053; 82570; 84156; 84550; 85025

== ENCOUNTER → 2024-02-16 | Outpatient (CLI) | payer BC, SELFPAY ==
[2024-02-16 11:29] LABS: Protein, Urine (Random) 26.9 mg/dL (<11.9); Protein:Creat Ratio 144 mg/g CRE (0-200)
== END | disposition home or self-care (01) ==
PROVIDERS: PCP Internal Medicine; Referring Provider Obstetrics & Gynecology; Visit Provider Obstetrics & Gynecology
DX: O14.92 Unspecified pre-eclampsia, second trimester (principal); Z3A.00 Weeks of gestation of pregnancy not specified
CPT/HCPCS: 82570; 84156

== ENCOUNTER → 2024-02-16 | Outpatient (CLI) | payer BC, SELFPAY ==
[2024-02-16 10:47] LABS: Absolute Lymphocyte Count 1.72 X10^3/uL (0.83-4.51); Absolute Neutrophil Count 9.1 X10^3/uL (2.0-7.7); Basophil# 0.07 X10^3/uL; Basophil% 0.6 % (0-1); Eosinophil# 0.14 X10^3/uL; Eosinophils% 1.1 % (0-5); Hematocrit 33.7 % (37-47); Hemoglobin 10.7 g/dL (12.0-15.0); Lymphocyte # 1.72 X10^3/ul (0.83-4.51); Lymphocyte % 13.6 % (19-41); Mean Corp Hgb Conc 31.8 g/dL (32-36); Mean Corpuscular Hgb 29.2 pg (27.0-32.0); Mean Corpuscular Volume 91.8 fL (81-99); Mean Platelet Vol. 10.4 fl (6.2-12.0); Monocyte# 1.33 X10^3/uL; Monocyte% 10.5 % (0-10); NRBC Flagged by Analyzer 0 % (0-5); Neutrophil # 9.05 X10^3/uL (2.7-7.7); Neutrophil % 71.7 % (47-70); Platelet Count 271 K/mm3 (150-450); RBC Distribution Width CV 12.5 % (11.6-14.6); Red Blood Count 3.67 M/mm3 (4.2-5.4); White Blood Count 12.6 K/mm3 (4.4-11.0)
[2024-02-16 11:30] LABS: ALB/GLOB Ratio 0.8 RATIO (0.9-2.4); AST(SGOT) 15 U/L (15-37); Alanine Aminotransfer ALT/SGPT 19 U/L (13-56); Albumin, Serum 2.9 g/dL (3.2-5.0); Alkaline Phosphatase 89 U/L (45-117); Anion Gap 6 (5-15); BUN 9 mg/dL (7-18); BUN/Creat Ratio 14.6 RATIO (10-20); Calcium,Total 9.1 mg/dL (8.5-10.1); Chloride 106 mmol/L (98-107); Creatinine, Serum 0.62 mg/dL (0.55-1.02); EST Glomerular Filtration Rate 124 mL/min (>60); Est Glom Filt Rate - Afr Amer 151 mL/min (>60); Globulin 3.8 g/dL (2.2-4.2); Glucose 78 mg/dL (74-106); Potassium 3.6 mmol/L (3.5-5.1); Protein, Total 6.7 g/dL (6.4-8.2); Sodium Level 135 mmol/L (136-145)
== END | disposition home or self-care (01) ==
LOC: LAB 09:26
PROVIDERS: PCP Internal Medicine; Referring Provider Obstetrics & Gynecology; Visit Provider Obstetrics & Gynecology
DX: O14.92 Unspecified pre-eclampsia, second trimester (principal); Z3A.00 Weeks of gestation of pregnancy not specified
CPT/HCPCS: 36415; 80053; 85025

== ENCOUNTER 2024-02-20 13:50 | Outpatient (CLI) | payer BC, SELFPAY ==
[2024-02-20] VITALS (9 sets, daily range): BP systolic 129–142; BP diastolic 71–82; PULSE 102–125; RESP 18; TEMP 36.9–37.3; O2SAT 97; BMI 35.3
[2024-02-20] MEDS: 0.9% Saline Lock 10 ML Syringe IV (14:30)
[2024-02-20 14:44] LABS: Hematocrit 33.5 % (37-47); Hemoglobin 10.8 g/dL (12.0-15.0); Mean Corp Hgb Conc 32.2 g/dL (32-36); Mean Corpuscular Volume 90.1 fL (81-99); Mean Platelet Vol. 10.1 fl (6.2-12.0); Platelet Count 261 K/mm3 (150-450); RBC Distribution Width CV 12.4 % (11.6-14.6); RBC Distribution Width SD 40.5 fl (35.1-43.9); Red Blood Count 3.72 M/mm3 (4.2-5.4); White Blood Count 10.9 K/mm3 (4.4-11.0)
--- NOTE | 2024-02-20 14:52 | VDLE_ITS ---
Reason For Study: Right leg swelling RIGHT GSV is normal. CFV is compressible, spontaneous, phasic, competent and demonstrates normal augmentation. FV is compressible, spontaneous, phasic, competent and demonstrates normal augmentation. POP V is compressible, spontaneous, phasic, competent and demonstrates normal augmentation. T/P Trunk is compressible. PTV is compressible. RT PerV is compressible. Procedure This is a venous duplex using B-mode, color flow and spectral Doppler. Exam performed portable in patient room. A preliminary report was called and/or faxed to [facility]. VL/Venous Duplex US, Unilateral Interpretation Summary Deep veins of the right lower extremity are patent and compressible segmentally . There is no evidence of right lower extremity deep vein thrombosis. The right great sapheno us vein appears patent and compressible segmentally. Ordering Physician: Lida Mabry Referring Physician: Mary Haas M.D. Performed By: Tory Fournier RVT
[2024-02-20 15:06] LABS: AST(SGOT) 16 U/L (15-37); Alanine Aminotransfer ALT/SGPT 21 U/L (13-56); Creatinine, Serum 0.58 mg/dL (0.55-1.02); EST Glomerular Filtration Rate 134 mL/min (>60); Est Glom Filt Rate - Afr Amer 162 mL/min (>60); Estimated Creatinine Clearance 151.01 ml/min; Uric Acid 3.4 mg/dL (2.6-6.0)
[2024-02-20 15:07] LABS: Protein:Creat Ratio 283 mg/g CRE (0-200)
--- NOTE | 2024-02-20 16:07 | OB.TRI.PN_ITS ---
Progress Notes Date of Service: 02/20/24 Progress Note: Patient presents for triage evaluation secondary to elevated bps at home. FHT: 130 Moderate variability reactive no decelerations category I tracing [place]: irregular Contractions Assessment and plan: normal labs, normal doppler (swelling in lower extremity), normal bps on unit. Reactive NST, reassuring maternal and status patient discharged to home to follow-up in office tomorrow. Reviewed with Dr Mabry and agrees with PLan of care. Plan 37 week IOL See problem list details for additional plan information. Laboratory Studies: Laboratory Tests 02/20/24 Range/Units 14:30 WBC 10.9 (4.4-11.0) K/mm3 RBC 3.72 L (4.2-5.4) M/mm3 Hgb 10.8 L (12.0-15.0) g/dL Hct 33.5 L (37-47) % MCV 90.1 (81-99) fL MCH 29.0 (27.0-32.0) pg MCHC 32.2 (32-36) g/dL RDW Std Deviation 40.5 (35.1-43.9) fl RDW Coeff of Talon 12.4 (11.6-14.6) % Plt Count 261 (150-450) K/mm3 MPV 10.1 (6.2-12.0) fl Creatinine 0.58 (0.55-1.02) mg/dL Estim Creat Clear Calc 151.01 ml/min Est GFR (MDRD) Af Amer 162 (>60) mL/min Est GFR (MDRD) Non-Af 134 (>60) mL/min Uric Acid 3.4 (2.6-6.0) mg/dL AST 16 (15-37) U/L ALT 21 (13-56) U/L U Random Total Protein 8.0 (<11.9) mg/dL Urine Creatinine 28.30 (NO RANGE EST.) mg/dL Protein/Creatinin Ratio 283 H (0-200) mg/g CRE Charges/Coding Multi Select Codes Urinary/Genital Urinary/Genital CPT Codes: 87686-77 non-stress test Interp Assessment & Plan (1) Pre-eclampsia during in second trimester, antepartum: COMMENT: plan 2x weekly NSTs, growth US q 4 weeks, labetalol 100 BID delivery at 37. weekly labs. home bp monitoring. celestone given 02/01- (2) Abnormal glucose affecting : COMMENT: 3 hour WNL (3) Family history of deafness and hearing loss: COMMENT: sister (4) : QUALIFIERS: Weeks of gestation: 35 weeks Qualified Code(s): Z3A.35 - 35 weeks gestation of COMMENT: NIPT low risk, carrier testing neg. . Nl anatomy (5) Supervision of high risk , antepartum: COMMENT: PRR NORMAN 03/21/24 girl Balwinder : Ishaan (6) Septate uterus affecting : QUALIFIERS: Trimester: second trimester Qualified Code(s): O34.02 - Maternal care for unspecified congenital malformation of uterus, second trimester; Q51.28 - Other and unspecified doubling of uterus (7) Mild type 1 von Willebrand disease: COMMENT: very mild. has pediatric neuropsychologist with [facility]- reviewed, records scanned. recommend TXA at delivery, likely will not need DDAVP.
== END 2024-02-20 16:10 | disposition home or self-care (01) ==
LOC: WPOUT 13:58 → WP 13:58
PROVIDERS: Obstetrics & Gynecology; PCP Internal Medicine; Referring Provider Advanced Practice Midwife; Visit Provider Advanced Practice Midwife
DX: O14.93 Unspecified pre-eclampsia, third trimester (principal); D68.01 Von Willebrand disease, type 1; O99.810 Abnormal glucose complicating pregnancy; Z3A.35 35 weeks gestation of pregnancy; O34.03 Maternal care for unspecified congenital malformation of uterus, third trimester; Q51.28 Other and unspecified doubling of uterus; O99.113 Other diseases of the blood and blood-forming organs and certain disorders involving the immune mechanism complicating pregnancy, third trimester; M79.89 Other specified soft tissue disorders; O99.893 Other specified diseases and conditions complicating puerperium
CPT/HCPCS: 36415; 59025; 59050; 82565; 82570; 84156; 84450; 84460; 84550; 85027; 93971; 99221; A4216; G0378

== ENCOUNTER 2024-02-21 10:24 | Outpatient (CLI) | payer BC, SELFPAY ==
--- NOTE | 2024-02-21 10:26 | US_ITS ---
STUDY: SECOND AND THIRD TRIMESTER OBSTETRICAL ULTRASOUND - LIMITED REASON FOR EXAM: Female, 28 years old growth -- RAYMUNDO LMP: June 15, 2023. PRIOR ULTRASOUND: Comparison is made with prior study dated January 31, 2024. TECHNIQUE: Transabdominal TECHNICAL QUALITY: Adequate. FINDINGS: There is a single intrauterine fetus. The fetus is in a cephalic presentation. There is demonstrated cardiac activity with a heart rate of 133 bpm. There is a normal amniotic fluid volume. The largest amniotic fluid pocket measures 3.5 cm. The amniotic fluid index (RAYMUNDO) is 12.4 cm. The placenta is anterior in location and is not low lying. There are Grade 2 placental changes. The cervix was not measured due to head position. BIOMETRY: BPD: 8.83 cm: 35 weeks, 5 days HC: 32.1 cm: 36 weeks, 1 days AC: 33.28 cm: 37 weeks, 1 days FL: 7.03 cm: 36 weeks, 0 days Age by LMP: 35 weeks, 6 days. NORMAN by LMP: March 21, 2024. age by prior US: 36 weeks, 1 days. NORMAN by prior US: March 19, 2024. age by current US: 36 weeks, 3 days. NORMAN by current US: March 17, 2024. Estimated weight: 3022 grams, +/- 453 grams, 74 percentile. US/OB Limited With Biometrics IMPRESSION: Single live intrauterine gestation with mean gestational age of 36 weeks and 1 day. The measurements obtained today fall within the normal expected range. Electronically Signed: Ammon Parker MD at 15:12 EDT ,
[2024-02-21 20:40] VITALS: BMI 35.2
[2024-02-21 20:43] VITALS: RESP 16; TEMP 36.7
[2024-02-21 20:47] VITALS: BP 136/82; PULSE 127
[2024-02-21 21:21] LABS: ROM Internal Control Test YES-OK TO RESULT pt. (Internal QC); ROM Patient Test Negative (Negative); Record Kit Lot#, ROM+ K1409
--- NOTE | 2024-02-26 07:51 | OB.TRI.HP_ITS ---
HPI - General General Date of Service: 02/21/24 Chief Complaint: rule out ROM HPI Narrative ELISA COPELAND, is a 28 F who presents at 36 weeks with questionable leaking of fluid. good fm. no ctx/ vb Maternal Data Information NORMAN Calculator Estimated Delivery Date Method Current WG Current Estimate 03/21/24 LMP (Certain) 36w 4d Other Estimates 03/18/24 Ultrasound #1 37w 0d PFSH PFSH Medical History Anemia Anxiety and depression Back pain Blood disorder Former smoker Heartburn History of edema Hypertension Mild type 1 von Willebrand disease Wears contact lenses Home Medications docosahexaenoic acid 200 mg capsule ( DHA) 200 mg PO DAILY 08/18/23 [History Last Taken 01/18/24] labetalol 100 mg tablet 100 mg PO BID #60 tabs 02/02/24 [Rx Last Taken 02/03/24] Allergy/AdvReac Type Severity Reaction Status Date / Time amoxicillin [From Augmentin] Allergy Hives Verified 02/23/24 09:47 clavulanic acid Allergy Hives Verified 02/23/24 09:47 [From Augmentin] Family History Grandfather Diabetes CVA (cerebral vascular accident) Grandmother Myocardial infarction Diabetes Mother BRCA positive Other Breast cancer Surgical History History of colonoscopy (~2010) History of esophagogastroduodenoscopy (EGD) S/P appendectomy Social History adopted: No household members: spouse current occupational status: employed current occupation: [employer] current occupational exposures/hazards: Yes pets and animals: No history of recent travel: No sexually active: Yes Smoking Status: Former smoker alcohol intake: never substance use type: does not use caffeine: Yes what type of physical activity do you participate in: none seatbelt use: always do you feel safe at home: Yes additional social history: - Ishaan History 2 Elective abortions 1 Hx Para 0 Spontaneous abortions Hx # Term Pregnancies Ectopic pregnancies Hx # Pregnancies Multiple births # of living children Visit Details Expected Delivery Route/Plan Labor Preferences- CB/BF classes: enc. labor support person: Ishaan labor intervention preferences: [] pain management options preferred: [] cut cord/dad catch: [] : [] PP control planned: [] discussed possible routes of delivery and associated risks: [] special requests: [] Plans Covid status: [] Flu vaccine: [] Tdap vaccine: [] Rhogam: O pos LARC form signed: signed Problem list reviewed and updated with the most current plan of care details and appropriate orders placed. Relevant counseling for the gestational age provided. Continue routine care and follow up unless otherwise noted in visit notes/problem list details OB Flowsheet Initial Weight: 132 lb Date -?-?-?-?-?-?-?-?-?-?-?-?- EGA Weight BP Urine Prot -?-?-?-?-?-?-?-?-?-?-?-?- Glucose FHR FuHt Pres Dilation -?-?-?-?-?-?-?-?-?-?-?-?- Effaced St Visit Note 08/18/23 -?-?-?-?-?-?-?-?-?-?-?-?- 9w 1d 132 lb 4 oz (+4 oz) 124/82 -?-?-?-?-?-?-?-?-?-?-?-?- 171 -?-?-?-?-?-?-?-?-?-?-?-?- KW-CRL cons with dates. no concerns today. KW-CRL cons with dates. no c oncerns today. did have some spotting and was in ER last week. resolving. 09/15/23 -?-?-?-?-?-?-?-?-?-?-?-?- 13w 1d 131 lb 6 oz (-10 oz) 125/80 Negative -?-?-?-?-?-?-?-?-?-?-?-?- Negative 165 -?-?-?-?-?-?-?-?-?-?-?-?- JV- no further s potting. placenta may be growing near the cervix. we discussed pelvic rest until at least anatomy scan. 10/13/23 -?-?-?-?-?-?-?-?-?-?-?-?- 17w 1d 140 lb (+8 lb) 139/85 Negative -?-?-?-?-?-?-?-?-?-?-?-?- Negative 144 -?-?-?-?-?-?-?-?-?-?-?-?- JV- no lof, vagi nal bleeding, or cramping. has anatomy scan scheduled. cintia gates today. 11/09/23 -?-?-?-?-?-?-?-?-?-?-?-?- 21w 0d 156 lb (+24 lb) 137/84 Negative -?-?-?-?-?-?-?-?-?-?-?-?- Negative 154 -?-?-?-?-?-?-?-?-?-?-?-?- MH-No VB, Crampi ng. Feeling movement. Denies concerns. Discussed wt gain. Flu vaccine given 12/08/23 -?-?-?-?-?-?-?-?-?-?-?-?- 25w 1d 166 lb (+34 lb) 114/78 Negative -?-?-?-?-?-?-?-?-?-?-?-?- Negative 145 26 -?-?-?-?-?-?-?-?-?-?-?-?- SM- no vb lof go od fm no regular ctx SM- no vb lof good fm no reg ular ctx, discussed needs fu of hematology to clarify bleeding disorder. discussed weight gain and increased swelling in hands and feet. 12/22/23 -?-?-?-?-?-?-?-?-?-?-?-?- 27w 1d 169 lb (+37 lb) 126/83 Negative -?-?-?-?-?-?-?-?-?-?-?-?- Negative 145 27 -?-?-?-?-?-?-?-?-?-?-?-?- SM- no vb lof go od fm no regular ctx follows up with heme next week 01/12/24 -?-?-?-?-?-?-?-?-?-?-?-?- 30w 1d 179 lb (+47 lb) 154/84 147/84 Negative -?-?-?-?-?-?-?-?-?-?-?-?- Negative 153 30 -?-?-?-?-?-?-?-?-?-?-?-?- JV- tdap done to day. no lof, vaginal bleeding, or dec fm. JV- tdap done today. no lof, vaginal bleeding, or dec fm. she has a mild headache and bp is elevated x 3 here. sending to L&D to rule out pre-e 01/19/24 -?-?-?-?--?-?-?-?-?-?-?-?- 31w 1d 179 lb 8 oz (+47 lb 8 oz) 124/72 Negative -?-?-?-?-?-?-?-?-?-?-?-?- Negative 158 31 -?-?-?-?-?-?-?-?-?-?-?-?- kw- no vb/lof/ct x. good fm. follow up from for BP. start twice weekly testing and growth USs. no clonus, 2+ reflexes today. Labs normal yesterday. discussed POC with SM 01/24/24 -?-?-?-?-?-?-?-?-?-?-?-?- 31w 6d 181 lb 2 oz (+49 lb 2 oz) 133/81 Negative -?-?-?-?-?-?-?-?-?-?-?-?- Negative 135 32 -?-?-?-?-?-?-?-?-?-?-?-?- LC- no vb/ctx/lo f. good fm. BP at home improved since being off work 120- 130s/80s. denies headaches/ruq/visual changes. 01/26/24 -?-?-?-?-?-?-?-?--?-?-?-?- 32w 1d 181 lb 6 oz (+49 lb 6 oz) 134/82 120/79 Negative -?-?-?-?-?-?-?-?-?-?-?-?- Negative 140 -?-?-?-?-?-?-?-?-?-?-?-?- SM- bps normal t o occasionaly mildly elevated at home, improved while off work, recommend reduced work hours. obtain heme consult notes and labs. 01/31/24 -?-?--?-?-?-?-?-?-?-?-?-?- 32w 6d 184 lb 2 oz (+52 lb 2 oz) 130/82 Negative -?-?-?-?-?-?-?-?-?-?-?-?- Negative 135 -?-?-?-?-?-?-?-?-?-?-?-?- JV- nst not reac tive after an hour. sent to us for bpp and received an 06/20. 02/02/24 -?-?-?-?-?-?-?-?-?-?-?-?- 33w 1d 184 lb (+52 lb) 143/76 Negative -?-?-?-?-?-?-?-?-?-?-?-?- Negative 130 -?-?-?-?-?-?-?-?-?-?-?-?- SM- no vb lof go od fm no regular ctx no CARDONA, bps elevate dnow at home and here, to l and d for lab evluation and celestone administration 02/07/24 -?-?-?-?-?-?-?-?-?-?-?-?- 33w 6d 184 lb 4 oz (+52 lb 4 oz) 122/80 Negative -?-?-?-?-?-?-?-?-?-?-?-?- Negative 150 -?-?-?-?-?-?-?-?-?-?-?-?- MH-NST only reac tive. BPs last 24 hr nl. Cont to track 02/09/24 -?-?-?-?-?-?-?-?-?-?-?-?- 34w 1d 189 lb (+57 lb) 143/79 Negative -?-?-?-?-?-?-?-?-?-?-?-?- Negative 135 -?-?-?-?-?-?-?-?-?-?-?-?- kw- no vb/lof/ct x. ariela fm. reviewed bps. consistently 140/70s pre e labs today. 02/14/24 -?-?-?-?-?-?-?-?-?-?-?-?- 34w 6d 189 lb 8 oz (+57 lb 8 oz) 132/82 Negative -?-?-?-?-?-?-?-?-?-?-?-?- Negative 140 -?-?-?-?-?-?-?-?-?-?-?-?- JV- bp log revie wed. she has been on labetalol since february 01 and is status post steroids. cthn vs gtn discussed. devon plan for 37 week IOL unless develops more severe bp's. nst reactive today. JV- bp log reviewed. she has been on labetalol since february 01 and is status post steroids. cthn vs gtn discussed. devon plan for 37 week IOL unless develops more severe bp's. nst reactive today. rpt labs on monday. 02/16/24 -?-?-?-?-?--?-?-?-?-?-?-?- 35w 1d 190 lb 6 oz (+58 lb 6 oz) 124/82 Negative -?-?-?-?-?-?-?-?-?-?-?-?- Negative 130 -?-?-?-?-?-?-?-?-?-?-?-?- SM- bps stable, labs ordered today, gbs next week and will set up IOL for 37 02/21/24 -?-?-?-?-?-?-?-?-?-?-?-?- 35w 6d 194 lb 2 oz (+62 lb 2 oz) 128/74 Negative -?-?-?-?-?-?-?-?-?-?-?-?- Negative 140 -?-?-?-?-?-?-?-?-?-?-?-?- MH-NST only reac tive. Growth US today 02/23/24 -?-?-?-?-?-?-?-?-?-?-?-?- 36w 1d 194 lb 4 oz (+62 lb 4 oz) 113/79 1+ -?-?-?-?-?-?-?-?-?-?-?-?- Negative 140 -?-?-?-?-?-?-?-?-?-?--?-?- JV- pt has IOL s et up for next thrday. GBS collected and NST reactive. RTO for monday for last NST. NST FHR Rate Baby A Baseline: 135-140 Variability:: Moderate Accelerations:: 15 x 15 Decelerations:: None NST Reactive:: Yes FHR Category:: Category I Uterine Activity:: irregular Assessment & Plan (1) No leakage of amniotic fluid into vagina: COMMENT: rom plus negative. reactive nst. safe for d/c home PLAN: Plan Patient presents for triage evaluation secondary to rule out rom. rom plus negative. FHT: Moderate variability reactive no decelerations category I tracing [place]: irreg Contractions Assessment and plan: Reactive NST, reassuring maternal and status patient discharged to home to follow-up in office. See problem list details for additional plan information. Charges/Coding Procedures Urinary/Genital 52xxx-59xxx: 54722-03 non-stress test Interp Multi Select Codes Urinary/Genital Urinary/Genital CPT Codes: 14225-59 non-stress test Interp
--- NOTE | 2024-02-26 07:51 | OB.TRI.NOTE ---
HPI - General General Date of Service: 02/21/24 Chief Complaint: rule out ROM HPI Narrative ELISA COPELAND, is a 28 F who presents at 36 weeks with questionable leaking of fluid. good fm. no ctx/ vb Maternal Data Information NORMAN Calculator Estimated Delivery Date Method Current WG Current Estimate 03/21/24 LMP (Certain) 36w 4d Other Estimates 03/18/24 Ultrasound #1 37w 0d PFSH PFSH Medical History Anemia Anxiety and depression Back pain Blood disorder Former smoker Heartburn History of edema Hypertension Mild type 1 von Willebrand disease Wears contact lenses Home Medications docosahexaenoic acid 200 mg capsule ( DHA) 200 mg PO DAILY 08/18/23 [History Last Taken 01/18/24] labetalol 100 mg tablet 100 mg PO BID #60 tabs 02/02/24 [Rx Last Taken 02/03/24] Allergy/AdvReac Type Severity Reaction Status Date / Time amoxicillin [From Augmentin] Allergy Hives Verified 02/23/24 09:47 clavulanic acid Allergy Hives Verified 02/23/24 09:47 [From Augmentin] Family History Grandfather Diabetes CVA (cerebral vascular accident) Grandmother Myocardial infarction Diabetes Mother BRCA positive Other Breast cancer Surgical History History of colonoscopy (~2010) History of esophagogastroduodenoscopy (EGD) S/P appendectomy Social History adopted: No household members: spouse current occupational status: employed current occupation: [employer] current occupational exposures/hazards: Yes pets and animals: No history of recent travel: No sexually active: Yes Smoking Status: Former smoker alcohol intake: never substance use type: does not use caffeine: Yes what type of physical activity do you participate in: none seatbelt use: always do you feel safe at home: Yes additional social history: - Ishaan History 2 Elective abortions 1 Hx Para 0 Spontaneous abortions Hx # Term Pregnancies Ectopic pregnancies Hx # Pregnancies Multiple births # of living children Visit Details Expected Delivery Route/Plan Labor Preferences- CB/BF classes: enc. labor support person: Ishaan labor intervention preferences: [] pain management options preferred: [] cut cord/dad catch: [] : [] PP control planned: [] discussed possible routes of delivery and associated risks: [] special requests: [] Plans Covid status: [] Flu vaccine: [] Tdap vaccine: [] Rhogam: O pos LARC form signed: signed Problem list reviewed and updated with the most current plan of care details and appropriate orders placed. Relevant counseling for the gestational age provided. Continue routine care and follow up unless otherwise noted in visit notes/problem list details OB Flowsheet Initial Weight: 132 lb Date <del>?</del> EGA Weight BP Urine Prot <del>?</del> Glucose FHR FuHt Pres Dilation <del>?</del> Effaced St Visit Note 08/18/23 <del>?</del> 9w 1d 132 lb 4 oz (+4 oz) 124/82 <del>?</del> 171 <del>?</del> KW-CRL cons with dates. no concerns today. KW-CRL cons with dates. no concerns today. did have some spotting and was in ER last week. resolving. 09/15/23 <del>?</del> 13w 1d 131 lb 6 oz (-10 oz) 125/80 Negative <del>?</del> Negative 165 <del>?</del> JV- no further spotting. placenta may be growing near the cervix. we discussed pelvic rest until at least anatomy scan. 10/13/23 <del>?</del> 17w 1d 140 lb (+8 lb) 139/85 Negative <del>?</del> Negative 144 <del>?</del> JV- no lof, vaginal bleeding, or cramping. has anatomy scan scheduled. cintia gates today. 11/09/23 <del>?</del> 21w 0d 156 lb (+24 lb) 137/84 Negative <del>?</del> Negative 154 <del>?</del> MH-No VB, Cramping. Feeling movement. Denies concerns. Discussed wt gain. Flu vaccine given 12/08/23 <del>?</del> 25w 1d 166 lb (+34 lb) 114/78 Negative <del>?</del> Negative 145 26 <del>?</del> SM- no vb lof good fm no regular ctx SM- no vb lof good fm no regular ctx, discussed needs fu of hematology to clarify bleeding disorder. discussed weight gain and increased swelling in hands and feet. 12/22/23 <del>?</del> 27w 1d 169 lb (+37 lb) 126/83 Negative <del>?</del> Negative 145 27 <del>?</del> SM- no vb lof good fm no regular ctx follows up with heme next week 01/12/24 <del>?</del> 30w 1d 179 lb (+47 lb) 154/84 147/84 Negative <del>?</del> Negative 153 30 <del>?</del> JV- tdap done today. no lof, vaginal bleeding, or dec fm. JV- tdap done today. no lof, vaginal bleeding, or dec fm. she has a mild headache and bp is elevated x 3 here. sending to L&D to rule out pre-e 01/19/24 <del>?</del> 31w 1d 179 lb 8 oz (+47 lb 8 oz) 124/72 Negative <del>?</del> Negative 158 31 <del>?</del> kw- no vb/lof/ctx. good fm. follow up from for BP. start twice weekly testing and growth USs. no clonus, 2+ reflexes today. Labs normal yesterday. discussed POC with SM 01/24/24 <del>?</del> 31w 6d 181 lb 2 oz (+49 lb 2 oz) 133/81 Negative <del>?</del> Negative 135 32 <del>?</del> LC- no vb/ctx/lof. good fm. BP at home improved since being off work 120-130s/80s. denies headaches/ruq/visual changes. 01/26/24 <del>?</del> 32w 1d 181 lb 6 oz (+49 lb 6 oz) 134/82 120/79 Negative <del>?</del> Negative 140 <del>?</del> SM- bps normal to occasionaly mildly elevated at home, improved while off work, recommend reduced work hours. obtain heme consult notes and labs. 01/31/24 <del>?</del> 32w 6d 184 lb 2 oz (+52 lb 2 oz) 130/82 Negative <del>?</del> Negative 135 <del>?</del> JV- nst not reactive after an hour. sent to us for bpp and received an 06/20. 02/02/24 <del>?</del> 33w 1d 184 lb (+52 lb) 143/76 Negative <del>?</del> Negative 130 <del>?</del> SM- no vb lof good fm no regular ctx no CARDONA, bps elevate dnow at home and here, to l and d for lab evluation and celestone administration 02/07/24 <del>?</del> 33w 6d 184 lb 4 oz (+52 lb 4 oz) 122/80 Negative <del>?</del> Negative 150 <del>?</del> MH-NST only reactive. BPs last 24 hr nl. Cont to track 02/09/24 <del>?</del> 34w 1d 189 lb (+57 lb) 143/79 Negative <del>?</del> Negative 135 <del>?</del> kw- no vb/lof/ctx. good fm. reviewed bps. consistently 140/70s pre e labs today. 02/14/24 <del>?</del> 34w 6d 189 lb 8 oz (+57 lb 8 oz) 132/82 Negative <del>?</del> Negative 140 <del>?</del> JV- bp log reviewed. she has been on labetalol since february 01 and is status post steroids. cthn vs gtn discussed. devon plan for 37 week IOL unless develops more severe bp's. nst reactive today. JV- bp log reviewed. she has been on labetalol since february 01 and is status post steroids. cthn vs gtn discussed. devon plan for 37 week IOL unless develops more severe bp's. nst reactive today. rpt labs on monday. 02/16/24 <del>?</del> 35w 1d 190 lb 6 oz (+58 lb 6 oz) 124/82 Negative <del>?</del> Negative 130 <del>?</del> SM- bps stable, labs ordered today, gbs next week and will set up IOL for 37 02/21/24 <del>?</del> 35w 6d 194 lb 2 oz (+62 lb 2 oz) 128/74 Negative <del>?</del> Negative 140 <del>?</del> MH-NST only reactive. Growth US today 02/23/24 <del>?</del> 36w 1d 194 lb 4 oz (+62 lb 4 oz) 113/79 1+ <del>?</del> Negative 140 <del>?</del> JV- pt has IOL set up for next thrday. GBS collected and NST reactive. RTO for monday for last NST. NST FHR Rate Baby A Baseline: 135-140 Variability:: Moderate Accelerations:: 15 x 15 Decelerations:: None NST Reactive:: Yes FHR Category:: Category I Uterine Activity:: irregular Assessment & Plan (1) No leakage of amniotic fluid into vagina: COMMENT: rom plus negative. reactive nst. safe for d/c home PLAN: Plan Patient presents for triage evaluation secondary to rule out rom. rom plus negative. FHT: Moderate variability reactive no decelerations category I tracing [place]: irreg Contractions Assessment and plan: Reactive NST, reassuring maternal and status patient discharged to home to follow-up in office. See problem list details for additional plan information. Charges/Coding Procedures Urinary/Genital 52xxx-59xxx: 48312-85 non-stress test Interp Multi Select Codes Urinary/Genital Urinary/Genital CPT Codes: 69439-41 non-stress test Interp
== END 2024-02-21 21:41 | disposition home or self-care (01) ==
LOC: US 20:35 → WP 20:35
PROVIDERS: PCP Internal Medicine; Referring Provider Obstetrics & Gynecology; Visit Provider Registered Nurse
DX: Z03.79 Encounter for other suspected maternal and fetal conditions ruled out (principal); Z3A.36 36 weeks gestation of pregnancy
CPT/HCPCS: 59025; 59050; 76816; 84112; 99221; G0378

== ENCOUNTER → 2024-02-23 | Outpatient (CLI) | payer BC, SELFPAY | END | disposition home or self-care (01) | PROVIDERS: PCP Internal Medicine; Referring Provider Obstetrics & Gynecology; Visit Provider Obstetrics & Gynecology | DX: O26.899 Other specified pregnancy related conditions, unspecified trimester (principal); R30.0 Dysuria; Z3A.00 Weeks of gestation of pregnancy not specified | CPT/HCPCS: 87081; 87086 ==

== ENCOUNTER 2024-02-29 19:15 | Inpatient (IN) | payer BC, SELFPAY ==
[2024-02-29 19:20] VITALS: PULSE 125; O2SAT 98
[2024-02-29 19:25] VITALS: PULSE 123; O2SAT 99
[2024-02-29 19:26] VITALS: BP 141/91; PULSE 121; RESP 16; TEMP 36.8
[2024-02-29 19:38] VITALS: BMI 36.2
[2024-02-29 19:50] LABS: Absolute Lymphocyte Count 1.99 X10^3/uL (0.83-4.51); Absolute Neutrophil Count 9.7 X10^3/uL (2.0-7.7); Basophil# 0.05 X10^3/uL; Basophil% 0.4 % (0-1); Eosinophils% 0.8 % (0-5); Hematocrit 32.7 % (37-47); Hemoglobin 10.7 g/dL (12.0-15.0); Lymphocyte # 1.99 X10^3/ul (0.83-4.51); Lymphocyte % 15.1 % (19-41); Mean Corp Hgb Conc 32.7 g/dL (32-36); Mean Corpuscular Hgb 29.1 pg (27.0-32.0); Mean Corpuscular Volume 88.9 fL (81-99); Mean Platelet Vol. 10.2 fl (6.2-12.0); Monocyte# 1.08 X10^3/uL; Monocyte% 8.2 % (0-10); NRBC Flagged by Analyzer 0 % (0-5); Neutrophil # 9.74 X10^3/uL (2.7-7.7); Platelet Count 284 K/mm3 (150-450); RBC Distribution Width CV 12.3 % (11.6-14.6); RBC Distribution Width SD 39.7 fl (35.1-43.9); Red Blood Count 3.68 M/mm3 (4.2-5.4); White Blood Count 13.2 K/mm3 (4.4-11.0)
[2024-02-29 20:32] LABS: Syphilis Antibodies Non-reactive
[2024-02-29 20:47] VITALS: BP 137/76; PULSE 109; RESP 16; TEMP 36.7
[2024-02-29] MEDS: miSOPROStol 25 MCG TABLET VAGINAL (20:58)
[2024-03-01] VITALS (36 sets, daily range): BP systolic 110–143; BP diastolic 51–94; PULSE 77–146; RESP 16–18; TEMP 36.3–37.9; O2SAT 80–100
[2024-03-01] MEDS: miSOPROStol 25 MCG TABLET VAGINAL ×2 (01:09→05:23)
--- NOTE | 2024-03-01 07:49 | HP.PCM.OB_ITS ---
HPI - General General Date of Admission: 02/29/24 Date of Service: 03/01/24 HPI Narrative ELISA COPELAND, is a 28 F 37.1 weeks gestation today who presented last night for IOL for Pre-eclampsia. Maternal Data Information NORMAN Calculator Estimated Delivery Date Method Current WG Current Estimate 03/21/24 LMP (Certain) 37w 1d Other Estimates 03/18/24 Ultrasound #1 37w 4d Final NORMAN: 03/21/24 Final NORMAN Source: US >20 weeks Gestational age: 37.1 weeks [facility] Medical History (Updated 03/01/24 @ 07:52 by Lindsey Spencer CNM) Anemia Anxiety and depression Back pain Blood disorder Chlamydia infection affecting Family history of hearing loss at age younger than 7 years Former smoker Heartburn History of edema Hypertension Mild type 1 von Willebrand disease Wears contact lenses Home Medications docosahexaenoic acid 200 mg capsule ( DHA) 200 mg PO DAILY 08/18/23 [History Last Taken 02/29/24] labetalol 100 mg tablet 100 mg PO BID blood prerssure #60 tabs 02/02/24 [Rx Last Taken 02/29/24 19:00] Allergy/AdvReac Type Severity Reaction Status Date / Time amoxicillin [From Augmentin] Allergy Hives Verified 02/29/24 20:01 clavulanic acid Allergy Hives Verified 02/29/24 20:01 [From Augmentin] Family History Grandfather Diabetes CVA (cerebral vascular accident) Grandmother Myocardial infarction Diabetes Mother BRCA positive Other Breast cancer Surgical History History of colonoscopy (~2010) History of esophagogastroduodenoscopy (EGD) S/P appendectomy Social History adopted: No household members: spouse current occupational status: employed current occupation: [employer] current occupational exposures/hazards: Yes pets and animals: No history of recent travel: No sexually active: Yes Smoking Status: Former smoker alcohol intake: never substance use type: does not use caffeine: Yes what type of physical activity do you participate in: none seatbelt use: always do you feel safe at home: Yes additional social history: - Ishaan History 2 Elective abortions 1 Hx Para 0 Spontaneous abortions Hx # Term Pregnancies Ectopic pregnancies Hx # Pregnancies Multiple births # of living children Visit Details Expected Delivery Route/Plan Labor Preferences- CB/BF classes: enc. labor support person: Ishaan labor intervention preferences: [] pain management options preferred: [] cut cord/dad catch: [] : [] PP control planned: [] discussed possible routes of delivery and associated risks: [] special requests: [] Plans Covid status: [] Flu vaccine: [] Tdap vaccine: [] Rhogam: O pos LARC form signed: signed Problem list reviewed and updated with the most current plan of care details and appropriate orders placed. Relevant counseling for the gestational age provided. Continue routine care and follow up unless otherwise noted in visit notes/problem list details OB Flowsheet Initial Weight: 132 lb Date -?-?-?-?-?-?-?-?-?-?-?-?- EGA Weight BP Urine Prot -?-?-?-?-?-?-?-?-?-?-?-?- Glucose FHR FuHt Pres Dilation -?-?-?-?-?-?-?-?-?-?-?-?- Effaced St Visit Note 08/18/23 -?-?-?-?-?-?-?-?-?-?-?-?- 9w 1d 132 lb 4 oz (+4 oz) 124/82 -?-?-?-?-?-?-?-?-?-?-?-?- 171 -?-?-?-?-?-?-?-?-?-?-?-?- KW-CRL cons with dates. no concerns today. KW-CRL cons with dates. no c oncerns today. did have some spotting and was in ER last week. resolving. 09/15/23 -?-?-?-?-?-?-?-?-?-?-?-?- 13w 1d 131 lb 6 oz (-10 oz) 125/80 Negative -?-?-?-?-?-?-?-?-?-?-?-?- Negative 165 -?-?-?-?-?-?-?-?-?-?-?-?- JV- no further s potting. placenta may be growing near the cervix. we discussed pelvic rest until at least anatomy scan. 10/13/23 -?-?-?-?-?-?-?-?-?-?-?-?- 17w 1d 140 lb (+8 lb) 139/85 Negative -?-?-?-?-?-?-?-?-?-?-?-?- Negative 144 -?-?-?-?-?-?-?-?-?-?-?-?- JV- no lof, vagi nal bleeding, or cramping. has anatomy scan scheduled. cintia gates today. 11/09/23 -?-?-?-?-?-?-?-?-?-?-?-?- 21w 0d 156 lb (+24 lb) 137/84 Negative -?-?-?-?-?-?-?-?-?-?-?-?- Negative 154 -?-?-?-?-?-?-?-?-?-?-?-?- MH-No VB, Crampi ng. Feeling movement. Denies concerns. Discussed wt gain. Flu vaccine given 12/08/23 -?-?-?-?-?-?-?-?-?-?-?-?- 25w 1d 166 lb (+34 lb) 114/78 Negative -?-?-?-?-?-?-?-?-?-?-?-?- Negative 145 26 -?-?-?-?-?-?-?-?-?-?-?-?- SM- no vb lof go od fm no regular ctx SM- no vb lof good fm no reg ular ctx, discussed needs fu of hematology to c larify bleeding disorder. discussed weight gain and increased swelling in hands and feet. 12/22/23 -?-?-?-?-?-?-?-?-?-?-?-?- 27w 1d 169 lb (+37 lb) 126/83 Negative -?-?-?-?-?-?-?-?-?-?-?-?- Negative 145 27 -?-?-?-?-?-?-?-?-?-?-?-?- SM- no vb lof go od fm no regular ctx follows up with heme next week 01/12/24 -?-?-?-?-?-?-?-?-?-?-?-?- 30w 1d 179 lb (+47 lb) 154/84 147/84 Negative -?-?-?-?-?-?-?-?-?-?-?-?- Negative 153 30 -?-?-?-?-?-?-?-?-?-?-?-?- JV- tdap done to day. no lof, vaginal bleeding, or dec fm. JV- tdap done today. no lof, vaginal bleeding, or dec fm. she has a mild headache and bp is elevated x 3 here. sending to L&D to rule out pre-e 01/19/24 -?-?-?-?-?-?-?-?-?-?-?-?- 31w 1d 179 lb 8 oz (+47 lb 8 oz) 124/72 Negative -?-?-?-?-?-?-?-?-?-?-?-?- Negative 158 31 -?-?-?-?-?-?-?-?-?-?-?-?- kw- no vb/lof/ct x. good fm. follow up from for BP. start twice weekly testing and growth USs. no clonus, 2+ reflexes today. Labs normal yesterday. discussed POC with SM 01/24/24 -?-?-?-?-?-?-?-?-?-?-?-?- 31w 6d 181 lb 2 oz (+49 lb 2 oz) 133/81 Negative -?-?-?-?-?-?-?-?-?-?-?-?- Negative 135 32 -?-?-?-?-?-?-?-?-?-?-?-?- LC- no vb/ctx/lo f. good fm. BP at home improved since being off work 120- 130s/80s. denies headaches/ruq/visual changes. 01/26/24 -?-?-?-?-?-?-?-?-?-?-?-?- 32w 1d 181 lb 6 oz (+49 lb 6 oz) 134/82 120/79 Negative -?-?-?-?-?-?-?-?-?-?-?-?- Negative 140 -?-?-?-?-?-?-?-?-?-?-?-?- SM- bps normal t o occasionaly mildly elevated at home, improved while off work, recommend reduced work hours. obtain heme consult notes and labs. 01/31/24 -?-?-?-?-?-?-?-?-?-?-?-?- 32w 6d 184 lb 2 oz (+52 lb 2 oz) 130/82 Negative -?-?-?-?-?-?-?-?-?-?-?-?- Negative 135 -?-?-?-?-?-?-?-?-?-?-?-?- JV- nst not reac tive after an hour. sent to us for bpp and received an 06/20. 02/02/24 -?-?-?-?-?-?-?-?-?-?-?-?- 33w 1d 184 lb (+52 lb) 143/76 Negative -?-?-?-?-?-?-?-?-?-?-?-?- Negative 130 -?-?-?-?-?-?-?-?-?-?-?--?- SM- no vb lof go od fm no regular ctx no CARDONA, bps elevate dnow at home and here, to l and d for lab evluation and celestone administration 02/07/24 -?-?-?-?-?-?-?-?-?-?-?-?- 33w 6d 184 lb 4 oz (+52 lb 4 oz) 122/80 Negative -?-?-?-?-?-?-?-?-?-?-?-?- Negative 150 -?-?-?-?-?-?-?-?-?-?-?-?- MH-NST only reac tive. BPs last 24 hr nl. Cont to track 02/09/24 -?-?-?-?-?-?-?-?-?-?-?-?- 34w 1d 189 lb (+57 lb) 143/79 Negative -?-?-?-?-?-?-?-?-?-?-?-?- Negative 135 -?-?-?-?-?-?-?-?-?-?-?-?- kw- no vb/lof/ct x. good fm. reviewed bps. consistently 140/70s pre e labs today. 02/14/24 -?-?-?-?-?-?-?-?-?-?-?-?- 34w 6d 189 lb 8 oz (+57 lb 8 oz) 132/82 Negative -?-?-?-?-?-?-?-?-?-?-?-?- Negative 140 -?-?-?-?-?-?-?-?-?-?-?-?- JV- bp log revie wed. she has been on labetalol since february 01 and is status post steroids. cthn vs gtn discussed. devon plan for 37 week IOL unless develops more severe bp's. nst reactive today. JV- bp log reviewed. she has been on labetalol since february 01 and is status post steroids. cthn vs gtn discussed. devon plan for 37 week IOL unless develops more severe bp's. nst reactive today. rpt labs on monday. 02/16/24 -?-?-?-?-?-?-?-?-?-?-?-?- 35w 1d 190 lb 6 oz (+58 lb 6 oz) 124/82 Negative -?-?-?-?-?-?-?-?-?-?-?-?- Negative 130 -?-?-?-?-?-?-?-?-?-?-?-?- SM- bps stable, labs ordered today, gbs next week and will set up IOL for 37 02/21/24 -?-?-?-?-?-?-?-?-?-?-?-?- 35w 6d 194 lb 2 oz (+62 lb 2 oz) 128/74 Negative -?-?-?-?-?-?-?-?-?-?-?-?- Negative 140 -?-?-?-?--?-?-?-?-?-?-?-?- -NST only reac tive. Growth US today 02/23/24 -?-?-?-?-?-?-?-?-?-?-?-?- 36w 1d 194 lb 4 oz (+62 lb 4 oz) 113/79 1+ -?-?-?-?-?-?-?-?-?-?-?-?- Negative 140 -?-?-?-?-?-?-?-?-?-?-?-?- JV- pt has IOL s et up for next thrday. GBS collected and NST reactive. RTO for monday for last NST. 02/26/24 -?-?-?-?-?-?-?-?-?-?-?-?- 36w 4d 194 lb (+62 lb) 138/80 Negative -?-?-?-?-?-?-?-?-?-?-?-?- Negative 140 -?-?-?-?-?-?-?-?-?-?-?-?- -NST only reac tive NST FHR Rate Baby A Baseline: 140 Variability:: Moderate Accelerations:: 15 x 15 Decelerations:: None NST Reactive:: Yes FHR Category:: Category I Uterine Activity:: irregular ROS Constitutional Constitutional: Denies change in weight, fatigue, fever(s), headache(s), poor appetite or weakness Eyes Eyes: Denies blurry vision, change in vision, floaters, seeing flashes or spots in vision ENT HEENT: Denies dizziness, headache(s), loss taste/smell or sore throat Cardiovascular Cardiovascular: Denies chest pain, dizziness, dyspnea, irregular heart rhythm, lightheadedness, palpitations or rapid heart rate Respiratory/Chest Respiratory/Chest: Denies change in mental status, chest tightness, cough, dyspnea or breast pain Gastrointestinal Gastrointestinal: Denies anorexia, chewing difficulty, constipation, diarrhea or weight changes Genitourinary Genitourinary: Denies difficulty urinating, dysuria, flank pain, genital pain, urinary frequency or urinary urgency Musculoskeletal Musculoskeletal: Denies back pain, difficulty walking, extremity pain, joint pain, muscle cramps or muscle weakness Integumentary Integumentary: Denies lesions or unusual bruising Neurologic Neurologic: Denies abnormal movements, abnormal speech, dizziness, numbness, seizure-like activity, syncope or weakness Psychiatric Psychiatric: Denies behavioral changes, change in appetite, confusion, depression, homicidal ideation, suicidal ideation or suicidal thoughts Endocrine Endocrinology: Denies excessive sweating, polydipsia or polyuria Hematologic/Lymphatic Hematologic/Lymphatic: Denies anemia Allergic/Immunologic Allergic/Immunologic: Denies itchy eyes, lip swelling, throat swelling, tongue swelling or wheezing Vital Signs Vital Signs Vital Signs: 02/29/24 19:20 02/29/24 19:20 02/29/24 19:25 Temperature Temperature Source Pulse Rate 125 H 123 H Respiratory Rate Blood Pressure BP Systolic BP Diastolic Pulse Ox 98 02/29/24 19:25 02/29/24 19:26 02/29/24 19:26 Temperature Temperature Source Pulse Rate 121 H Respiratory Rate Blood Pressure 141/91 H BP Systolic 141 BP Diastolic 91 Pulse Ox 99 02/29/24 19:26 02/29/24 19:26 02/29/24 19:26 Temperature 98.2 F Temperature Source Temporal Pulse Rate Respiratory Rate 16 Blood Pressure BP Systolic BP Diastolic Pulse Ox 02/29/24 20:47 02/29/24 20:47 02/29/24 20:47 Temperature Temperature Source Oral Pulse Rate 109 H Respiratory Rate Blood Pressure 137/76 H BP Systolic 137 BP Diastolic 76 Pulse Ox 02/29/24 20:47 02/29/24 20:47 03/01/24 00:58 Temperature 98.0 F Temperature Source Pulse Rate Respiratory Rate 16 Blood Pressure 136/76 H BP Systolic 136 BP Diastolic 76 Pulse Ox 03/01/24 00:58 03/01/24 00:58 03/01/24 00:58 Temperature Temperature Source Oral Pulse Rate 97 Respiratory Rate 16 Blood Pressure BP Systolic BP Diastolic Pulse Ox 03/01/24 00:58 03/01/24 05:21 03/01/24 05:21 Temperature 99.0 F Temperature Source Pulse Rate 90 Respiratory Rate Blood Pressure 134/64 H BP Systolic 134 BP Diastolic 64 Pulse Ox 03/01/24 05:22 03/01/24 05:22 03/01/24 05:21 Temperature Temperature Source Oral Pulse Rate 146 H Respiratory Rate Blood Pressure BP Systolic BP Diastolic Pulse Ox 80 03/01/24 05:21 03/01/24 05:21 03/01/24 07:40 Temperature 98.3 F Temperature Source Pulse Rate Respiratory Rate 16 Blood Pressure 143/89 H BP Systolic 143 BP Diastolic 89 Pulse Ox 03/01/24 07:40 03/01/24 07:40 03/01/24 07:40 Temperature Temperature Source Temporal Pulse Rate 85 Respiratory Rate 16 Blood Pressure BP Systolic BP Diastolic Pulse Ox 03/01/24 07:40 Temperature 98.8 F Temperature Source Pulse Rate Respiratory Rate Blood Pressure BP Systolic BP Diastolic Pulse Ox Weight Weight: 198 lb Body Mass Index (BMI) 36.2 Physical Exam Const alert, oriented x3 and no apparent distress General Appearance: cooperative Orientation / Consciousness: awake HEENT normocephalic Neck full ROM Lymph Lymphatic: no lymphadenopathy noted Chest inspection of chest normal Resp normal respiratory effort and normal air movement Effort and Inspection: able to speak in complete sentences and symmetric chest movement GI soft to palpation and non-tender Inspection: gravid Palpation: soft; Negative for tender external exam normal Manual OB Exam: dilated 3, effaced 70 and station -2 Back/Spine normal to inspection Extremity normal to inspection and full ROM Skin no rashes or lesions noted Psych mental status grossly normal Appearance: grossly normal Speech: normal speech Labs Labs Labs: Blood Type O POSITIVE Antibody Screen NEGATIVE Hct 32.7 % (37-47) L Hgb 10.7 g/dL (12.0-15.0) L Obstetrics Ultrasound Syphilis Total Ab Non-reactive Rubella IgG Antibody Reactive (Nonreactive) Hep Bs Antigen Non-Reactive (Nonreactive) Hepatitis C Antibody Non-Reactive (Nonreactive) Chlamydia DNA (BRANDI) Negative (Negative) N.gonorrhoeae DNA (BRANDI) Negative (Negative) HIV 1&2 Antibody Non-Reactive (Nonreactive) Glucose 1 Hr 50 gm 140 mg/dL (70-140) Gest Glucose Tolerance MG/DL Assessment & Plan (1) Encounter for induction of labor: PLAN: Patient presents IOL, plan management for with cytotec/ pitocin/AROM. Pain management: plans epidural. GBS negative. Management of any complications: Mild Von Willebrand disease I have reviewed the [facility] and made any clinically relevant updates. (2) Pre-eclampsia during in second trimester, antepartum: COMMENT: plan 2x weekly NSTs, growth US q 4 weeks, labetalol 100 BID delivery at 37. weekly labs. home bp monitoring. celestone given 02/01- (3) Abnormal glucose affecting : COMMENT: 3 hour WNL (4) Family history of deafness and hearing loss: COMMENT: sister (5) : QUALIFIERS: Weeks of gestation: 36 weeks Qualified Code(s): Z3A.36 - 36 weeks gestation of COMMENT: NIPT low risk, carrier testing neg. . Nl anatomy (6) Supervision of high risk , antepartum: COMMENT: PRR NORMAN 03/21/24 girl Balwinder : Ishaan (7) Septate uterus affecting : QUALIFIERS: Trimester: second trimester Qualified Code(s): O34.02 - Maternal care for unspecified congenital malformation of uterus, second trimester; Q51.28 - Other and unspecified doubling of uterus (8) Mild type 1 von Willebrand disease: COMMENT: very mild. has merchandise examiner with [facility]- reviewed, records scanned. recommend TXA at delivery, likely will not need DDAVP. Charges/Coding Multi Select Codes Urinary/Genital Urinary/Genital CPT Codes: No Charge
[2024-03-01] MEDS: Labetalol 100 MG Tablet PO ×2 (09:49→22:25)
[2024-03-01] MEDS: Lactated Ringers 1,000 ML 999 ML IV (10:25)
[2024-03-01] MEDS: LACTATED RINGERS 500 ML 999 ML IV (12:00)
--- NOTE | 2024-03-01 12:18 | PN_ITS ---
Progress Note Coping well with contractions but requesting epidural. current tracing: FHT: 145 Moderate variability reactive no decelerations category I tracing [place]: 2-4 minute Contractions Membranes:intact SVE:3/50/-2 per nursing exam. A/P: Continue with position changes Titrate pitocin per protocol Epidural per anesthesia Plan AROM after epidural placement DDAVP per anesthesia Plan TXA IV at delivery Anticipate Dr Mabry aware of above assessment and agrees with plan of care Assessment & Plan Assessment/Plan (1) Encounter for induction of labor: (2) Pre-eclampsia during in second trimester, antepartum: (3) Abnormal glucose affecting : (4) Family history of deafness and hearing loss: (5) : QUALIFIERS: Weeks of gestation: 36 weeks Qualified Code(s): Z3A.36 - 36 weeks gestation of (6) Supervision of high risk , antepartum: (7) Septate uterus affecting : QUALIFIERS: Trimester: second trimester Qualified Code(s): O34.02 - Maternal care for unspecified congenital malformation of uterus, second trimester; Q51.28 - Other and unspecified doubling of uterus (8) Mild type 1 von Willebrand disease: Multi Select Codes Urinary/Genital Urinary/Genital CPT Codes: No Charge
[2024-03-01] MEDS: Desmopressin Acetate 40 MCG/10 ML Vial 27 MCG IV (12:22)
[2024-03-01] MEDS: 0.9% Saline Lock 10 ML Syringe IV ×2 (12:26→22:54)
[2024-03-01] MEDS: fentaNYL-bupivacaine (epidural) 100 ML BAG EPIDURAL ×2 (13:15→17:49)
[2024-03-01] MEDS: Oxytocin 15 Units/NS 250ml 15 UNITS/250 ML IV.SOLN 2 UNITS IV (15:20)
[2024-03-01] MEDS: Lactated Ringers 1,000 ML 200 ML IV ×3 (15:25→21:01)
--- NOTE | 2024-03-01 16:20 | PCM.PN.BLA ---
Progress Note comfortable with epidural current tracing: FHT: 120 Moderate variability reactive no decelerations category I tracing [place]: 3-4 Contractions Membranes: ruptured remains clear SVE:5/70/-2 A/P: Continue with position changes Titrate pitocin per protocol Epidural per anesthesia Anticipate Dr Mabry aware of above assessment and agrees with plan of care Assessment & Plan Assessment/Plan (1) Encounter for induction of labor: (2) Pre-eclampsia during in second trimester, antepartum: (3) Abnormal glucose affecting : (4) Family history of deafness and hearing loss: (5) : QUALIFIERS: Weeks of gestation: 36 weeks Qualified Code(s): Z3A.36 - 36 weeks gestation of (6) Supervision of high risk , antepartum: (7) Mild type 1 von Willebrand disease: (8) Septate uterus affecting : QUALIFIERS: Trimester: second trimester Qualified Code(s): O34.02 - Maternal care for unspecified congenital malformation of uterus, second trimester; Q51.28 - Other and unspecified doubling of uterus Multi Select Codes Urinary/Genital Urinary/Genital CPT Codes: No Charge
[2024-03-01] MEDS: Amnioinfusion- 0.9% NS 1,000 ML IV.SOLN. 1000 ML INTRA-UTER (18:19)
--- NOTE | 2024-03-01 19:35 | PN_ITS ---
Progress Note comfortable with epidural current tracing: FHT: 140 Moderate variability reactive late, early and prolonged decelerations category II tracing [place]: 2-3 minute Contractions, no pitocin Membranes:ruptured, remains clear SVE:/ reviewed tracing abnormalities since last note: phone collaboration with Dr Mabry at this time for Cat II FHT tracing. She was on unit at 1840 to assess patient. A/P: Continue with position changes Titrate pitocin per protocol Epidural per anesthesia Anticipate Dr Mabry aware of above assessment and agrees with plan of care Assessment & Plan Assessment/Plan (1) Encounter for induction of labor: (2) Pre-eclampsia during in second trimester, antepartum: (3) Abnormal glucose affecting : (4) Family history of deafness and hearing loss: (5) : QUALIFIERS: Weeks of gestation: 36 weeks Qualified Code(s): Z3A.36 - 36 weeks gestation of (6) Supervision of high risk , antepartum: (7) Septate uterus affecting : QUALIFIERS: Trimester: second trimester Qualified Code(s): O34.02 - Maternal care for unspecified congenital malformation of uterus, second trimester; Q51.28 - Other and unspecified doubling of uterus (8) Mild type 1 von Willebrand disease: Multi Select Codes Urinary/Genital Urinary/Genital CPT Codes: No Charge
[2024-03-01] MEDS: Acetaminophen 500 MG Tablet PO (22:26)
[2024-03-01] MEDS: GENTAMICIN IVPB (22:46)
[2024-03-01] MEDS: WATER IVPB (22:46)
[2024-03-01] MEDS: DEXTROSE 5% IVPB (22:46)
[2024-03-01] MEDS: Ampicillin 2 GM in 0.9% Normal Saline (100mL MB+) 100 ML IV (22:47)
--- NOTE | 2024-03-01 23:06 | PLAC_PTH ---
PATIENT: ELISA COPELAND LOC: [facility] U#:[id number] AGE/SX: 28/F ROOM: WP007 RE02/29/[address]: Lindsey Spencer CNM : 1995 BED: 1 DIS: 03/03/2024 SPEC #: [id number] RECD: 03/01/24 23:55 STATUS: KEVIN REQ #: [id number] THOMAS: 03/01/24 23:[address]: Lindsey Spencer DEPT: SURGICAL PATHOLOGY RECD BY: Karly Thorne ENTERED: 03/04/24 10:55 SP TYPE: PLACENTA OTHR DR: Dr. Mary Haas MD Tissues: Placenta, NOS Procedures: Surgery Specimen Level V HEADER OPERATION: Vaginal delivery PRE-OP DIAGNOSIS: Possible triple I TISSUE SUBMITTED: Placenta MICROSCOPIC DIAGNOSIS Placenta: Placental disc - third trimester placenta (541 gm) with a succenturiate lobe. - Focal area of intraparenchymal hemorrhage (4.0cm in greatest dimension). Membranes - Focal minimal acute chorioamnionitis. Umbilical cord - three blood vessels and no pathologic diagnosis. SJ: 03/05/24 MICROSCOPIC DESCRIPTION Slides are reviewed. GROSS DESCRIPTION SPECIMEN: PLACENTA / CLINICAL INFORMATION: A. Weight: 2.82 kg B. Gestational Age: 37 weeks C. Sex: Female PLACENTAL WEIGHT (POST FIXATION): 541 gm PLACENTAL DIMENSIONS: Main lobe measures 16.0 x 16.0 x 4.0 cm. Succenturiate lobe measures 5.0 x 4.5 x 1.2cm. PLACENTAL SHAPE: Usual ovoid with a succenturiate lobe PLACENTAL WEIGHT FOR GESTATIONAL AGE: Within 10-99th percentile MEMBRANES - Present A. Insertion: Marginal B. Site of rupture from edge: 5.0 cm from edge of placental disc C. Color of membrane: Cabezas-licea D. Abnormalities: None UMBILICAL CORD - Present A. Color: Cabezas-licea B. Insertion: Central C. Length: 34.0 cm D. Diameter: 1.1 cm E. Number of vessels: Three F. Abnormalities: None PLACENTAL DISC - Present A. Color of surface: Cabezas-licea B. surface abnormalities: None C. Maternal cotyledons: Intact with minimal tears D. Attached retro placental clot: No clot E. Cut surface: Dark red and spongy F. Lesions: Sections reveal a hemorrhagic lesion in the center portion of the placenta measuring 4.0 x 2.0 x 2.0cm. G. Separate clot: Multiple blood clots weighing in aggregate 37gm and measuring 7.0 x 3.5 x 3.5cm. SECTIONS SUBMITTED: 1. Membrane roll 2. Cord, maternal end, Succenturiate lobe 3. Cord, end 4. Placental disc, and maternal surfaces, lesion 5. Placental disc, and maternal surfaces 6. Placental disc, and maternal surfaces SJ/mr 03/04/24 TC:2 CPT: 81415
[2024-03-01] MEDS: TRANEXAMIC ACID 1,000 MG in 0.9% Normal Saline (100mL Bag) 100 ML 440 MG IV (23:10)
--- NOTE | 2024-03-01 23:28 | OP.PCM_ITS ---
Assessment & Plan (1) Vaginal delivery: COMMENT: KW IOL 37 weeks girl (2) Pre-eclampsia during in second trimester, antepartum: COMMENT: plan 2x weekly NSTs, growth US q 4 weeks, labetalol 100 BID delivery at 37. weekly labs. home bp monitoring. celestone given 02/01- (3) Abnormal glucose affecting : COMMENT: 3 hour WNL (4) Family history of deafness and hearing loss: COMMENT: sister (5) : QUALIFIERS: Weeks of gestation: 36 weeks Qualified Code(s): Z3A.36 - 36 weeks gestation of COMMENT: NIPT low risk, carrier testing neg. . Nl anatomy (6) Supervision of high risk , antepartum: COMMENT: PRR NORMAN 03/21/24 tara Britt : [place] (7) Septate uterus affecting : QUALIFIERS: Trimester: second trimester Qualified Code(s): O34.02 - Maternal care for unspecified congenital malformation of uterus, second trimester; Q51.28 - Other and unspecified doubling of uterus (8) Mild type 1 von Willebrand disease: COMMENT: very mild. has application counselor with [facility]- reviewed, records scanned. recommend TXA at delivery, likely will not need DDAVP. Maternal Data Information NORMAN Calculator Estimated Delivery Date Method Current WG Current Estimate 03/21/24 LMP (Certain) 37w 1d Other Estimates 03/18/24 Ultrasound #1 37w 4d Final NORMAN: 03/21/24 Final NORMAN Source: US >20 weeks Gestational age: 37.1 weeks Vaginal Delivery Maternal Presentation Maternal Presentation: Medically Indicated Induction Maternal Presentation: Progressed well to 10cm dilated and made steady progress with effective maternal pushing. Delivered the head in BRYCE presentation. The head was delivered atraumatically and a loose nuchal cord was identified and was easily reduced over the 's head. The anterior and posterior shoulders delivered with assistance from the Cyndee maneuver and suprapubic pressure at 1:06. Ped and extra staff called for assistance with . See note. Cord was milked x1 and immediately clamped and cut. then handed of to waiting nursery nurse for assessment at the [facility] by the air conditioning installer supervisor. Cord gases were obtained. Gentle traction was then applied to the cord and the placenta delivered spontaneously. Immediately following, it was noted to be intact with a 3 vessel cord. TXA and IV pitocin started. The perineum and vagina were inspected and noted to have a first degree laceration which was repaired with 3-0 Vicryl in the usual fashion. EBL was 250cc. Bleeding stable. Patient and tolerated delivery well. Apgars 5/8. Dr Mabry notified of vaginal delivery and orders reviewed. Physician agrees with current plan of care. Type of Induction: Pitocin and Cytotec Medical Reason for Induction: Preeclampsia, eclampsia Operative Information Date of Procedure: 03/01/24 Pre-Operative Diagnosis: See AP comments Post-Operative Diagnosis: Same Surgery / Procedure Performed: Spontaneous Vaginal Delivery mold inspector #1: Lindsey Spencer Type of Anesthesia: Epidural Estimated Blood Loss: 250 Time of Delivery: 23:06 Findings Presentation: Vertex Amniotic Membrane Rupture Type: Artificial Amniotic Fluid Description: Clear Placental Delivery Description: Spontaneous Placenta Disposition: [facility] Cord Vessel Description: 3 Vessels Cord Entanglement: Around neck x 1, loose Cord Gases: ABG and VBG A Gender: Female (1 minute): 5 (5 minute): 8 Delayed Cord Clamping: Yes Post Vaginal Delivery Medications Given After Delivery: IM Pitocin and - (TXA) Episiotomy Description: None Laceration: 1st degree Multi Select Codes Urinary/Genital Urinary/Genital CPT Codes: 95548 Vaginal Delivery [facility]
[2024-03-01] MEDS: Oxytocin 15 Units/NS 250ml 15 UNITS/250 ML IV.SOLN 83 UNITS IV (23:45)
[2024-03-02] VITALS (12 sets, daily range): BP systolic 119–157; BP diastolic 56–88; PULSE 80–105; RESP 16–17; TEMP 36.4–36.8; O2SAT 98
--- NOTE | 2024-03-02 04:14 | PCM.PN.OB ---
Subjective Subjective Patient doing well without complaints. Tolerating PO. Ambulating and voiding without difficulty. Feeding well. Denies chest pain, shortness of breath, calf pain/swelling, fevers, chills, lightheadedness. Objective Data Objective Data Vital Signs: Vital Signs Temp Pulse Resp BP Pulse Ox 97.6 F L 94 16 124/56 H 100 03/02/24 01:13 03/02/24 01:13 03/02/24 01:13 03/02/24 01:13 03/01/24 22:17 Weight: 198 lb Body Mass Index (BMI) 36.2 Intake & Output: Intake and Output for Last 24 Hours 02/29/24 03/01/24 03/02/24 23:59 23:59 23:59 Intake Total 3088.50 / 3088.50 Output Total 250 / 250 250 / 250 Balance 2838.50 / 2838.50 -250 / -250 Lab / Micro Data 02/29/24 19:35 ROS Constitutional Constitutional: Reports systems reviewed and no addt'l complaints, except as documented; Denies anorexia or headache(s) Cardiovascular Cardiovascular: Reports systems reviewed and no addt'l complaints, except as documented; Denies dizziness, dyspnea, nausea or tachypnea Respiratory/Chest Respiratory/Chest: Reports systems reviewed and no addt'l complaints, except as documented; Denies cough, dyspnea, shortness of breath at rest or tachypnea Gastrointestinal Gastrointestinal: Reports systems reviewed and no addt'l complaints, except as documented; Denies abdominal pain, constipation or nausea Genitourinary Genitourinary: Reports systems reviewed and no addt'l complaints, except as documented; Denies burning urination, difficulty urinating, dysuria, urinary frequency or urinary incontinence Musculoskeletal Musculoskeletal: Reports systems reviewed and no addt'l complaints, except as documented Integumentary Integumentary: Reports systems reviewed and no addt'l complaints, except as documented Neurologic Neurologic: Reports systems reviewed and no addt'l complaints, except as documented; Denies abnormal speech, dizziness or headache(s) Psychiatric Psychiatric: Reports systems reviewed and no addt'l complaints, except as documented Endocrine Endocrinology: Reports systems reviewed and no addt'l complaints, except as documented Hematologic/Lymphatic Hematologic/Lymphatic: Reports systems reviewed and no addt'l complaints, except as documented Physical Exam Const alert, oriented x3 and no apparent distress Neck full ROM Resp normal respiratory effort, normal air movement and no retractions Effort and Inspection: able to speak in complete sentences and symmetric chest movement GI soft to palpation Bladder / Kidney Exam: bladder normal to palpation Uterus Palpation: uterus fundus firm Extremity normal to inspection and full ROM Psych mental status grossly normal, thought process normal and cooperative Assessment & Plan (1) Vaginal delivery: COMMENT: KW IOL 37 weeks girl PLAN: s/p PPD # 1 1. routine post delivery care 2. breast feeding- support given 3. rh positive 4. rubella immune (2) Pre-eclampsia during in second trimester, antepartum: COMMENT: plan 2x weekly NSTs, growth US q 4 weeks, labetalol 100 BID delivery at 37. weekly labs. home bp monitoring. celestone given 02/01- (3) Abnormal glucose affecting : COMMENT: 3 hour WNL (4) Family history of deafness and hearing loss: COMMENT: sister (5) : QUALIFIERS: Weeks of gestation: 36 weeks Qualified Code(s): Z3A.36 - 36 weeks gestation of COMMENT: NIPT low risk, carrier testing neg. . Nl anatomy (6) Supervision of high risk , antepartum: COMMENT: PRR NORMAN 03/21/24 girl [place] : Ishaan (7) Septate uterus affecting : QUALIFIERS: Trimester: second trimester Qualified Code(s): O34.02 - Maternal care for unspecified congenital malformation of uterus, second trimester; Q51.28 - Other and unspecified doubling of uterus (8) Mild type 1 von Willebrand disease: COMMENT: very mild. has service loss control consultant with [facility]- reviewed, records scanned. recommend TXA at delivery, likely will not need DDAVP. Charges/Coding Multi Select Codes Urinary/Genital Urinary/Genital CPT Codes: No Charge
[2024-03-02] MEDS: Ampicillin 2 GM in 0.9% Normal Saline (100mL MB+) 100 ML IV ×4 (04:57→23:14)
[2024-03-02] MEDS: 0.9% Saline Lock 10 ML Syringe IV ×2 (06:14→11:15)
[2024-03-02 06:22] LABS: Absolute Lymphocyte Count 1.93 X10^3/uL (0.83-4.51); Absolute Neutrophil Count 16.3 X10^3/uL (2.0-7.7); Basophil# 0.07 X10^3/uL; Basophil% 0.3 % (0-1); Eosinophil# 0.05 X10^3/uL; Eosinophils% 0.2 % (0-5); Hematocrit 30.4 % (37-47); Lymphocyte # 1.93 X10^3/ul (0.83-4.51); Lymphocyte % 9.4 % (19-41); Mean Corp Hgb Conc 32.9 g/dL (32-36); Mean Corpuscular Hgb 29.4 pg (27.0-32.0); Mean Corpuscular Volume 89.4 fL (81-99); Mean Platelet Vol. 9.7 fl (6.2-12.0); Monocyte# 2.02 X10^3/uL; Monocyte% 9.8 % (0-10); NRBC Flagged by Analyzer 0 % (0-5); Neutrophil # 16.32 X10^3/uL (2.7-7.7); Neutrophil % 79.4 % (47-70); POSITIVE DIFFERENTIAL YES; Platelet Count 224 K/mm3 (150-450); RBC Distribution Width CV 12.5 % (11.6-14.6); RBC Distribution Width SD 40.6 fl (35.1-43.9); White Blood Count 20.6 K/mm3 (4.4-11.0)
[2024-03-02 06:23] LABS: Differential Indicated SCAN CRITERIA MET
[2024-03-02 06:58] LABS: Differential Comment SCANNED
[2024-03-02] MEDS: Ibuprofen 600 MG Tablet PO ×2 (08:00→19:42)
[2024-03-02] MEDS: Acetaminophen 500 MG Tablet 1000 MG PO ×2 (08:00→19:42)
[2024-03-03 03:56] VITALS: BP 135/60; PULSE 77; RESP 16
[2024-03-03 09:00] VITALS: BP 134/88; PULSE 100; RESP 14; TEMP 36.3; O2SAT 97
[2024-03-03] MEDS: Acetaminophen 500 MG Tablet 1000 MG PO (09:12)
[2024-03-03] MEDS: Ibuprofen 600 MG Tablet PO (09:12)
--- NOTE | 2024-03-03 09:27 | PN.OBGYN_ITS ---
Subjective Subjective Patient doing well without complaints. Tolerating PO. Ambulating and voiding without difficulty. Feeding well. Denies chest pain, shortness of breath, calf pain/swelling, fevers, chills, lightheadedness. Objective Data Objective Data Vital Signs: Vital Signs Temp Pulse Resp BP Pulse Ox O2 Del Method 97.5 F L 77 16 135/60 H 98 Room Air 03/02/24 23:45 03/03/24 03:56 03/03/24 03:56 03/03/24 03:56 03/02/24 05:14 03/03/24 03:56 Oxygen Delivery Method Room Air Weight: 198 lb Body Mass Index (BMI) 36.2 Intake & Output: Intake and Output for Last 24 Hours 03/01/24 03/02/24 03/03/24 23:59 23:59 23:59 Intake Total 3088.50 / 3088.50 303.33 / 303.33 Output Total 250 / 250 550 / 550 Balance 2838.50 / 2838.50 -246.67 / -246.67 Lab / Micro Data Attestation: I reviewed the patient's lab results. 03/02/24 06:10 ROS Constitutional Constitutional: Reports systems reviewed and no addt'l complaints, except as documented; Denies anorexia or headache(s) Cardiovascular Cardiovascular: Reports systems reviewed and no addt'l complaints, except as documented; Denies dizziness, dyspnea, nausea or tachypnea Respiratory/Chest Respiratory/Chest: Reports systems reviewed and no addt'l complaints, except as documented; Denies cough, dyspnea, shortness of breath at rest or tachypnea Gastrointestinal Gastrointestinal: Reports systems reviewed and no addt'l complaints, except as documented; Denies abdominal pain, constipation or nausea Genitourinary Genitourinary: Reports systems reviewed and no addt'l complaints, except as documented; Denies burning urination, difficulty urinating, dysuria, urinary frequency or urinary incontinence Musculoskeletal Musculoskeletal: Reports systems reviewed and no addt'l complaints, except as documented Integumentary Integumentary: Reports systems reviewed and no addt'l complaints, except as documented Neurologic Neurologic: Reports systems reviewed and no addt'l complaints, except as documented; Denies abnormal speech, dizziness or headache(s) Psychiatric Psychiatric: Reports systems reviewed and no addt'l complaints, except as documented Endocrine Endocrinology: Reports systems reviewed and no addt'l complaints, except as documented Hematologic/Lymphatic Hematologic/Lymphatic: Reports systems reviewed and no addt'l complaints, except as documented Physical Exam Const alert, oriented x3 and no apparent distress Neck full ROM Resp normal respiratory effort, normal air movement and no retractions Effort and Inspection: able to speak in complete sentences and symmetric chest movement GI soft to palpation Bladder / Kidney Exam: bladder normal to palpation Uterus Palpation: uterus fundus firm Extremity normal to inspection and full ROM Psych mental status grossly normal, thought process normal and cooperative Assessment & Plan (1) Vaginal delivery: COMMENT: KW IOL 37 weeks girl PLAN: s/p PPD # 2 1. routine post delivery care 2. breast feeding- support given 3. rh positive 4. rubella immune 5. Discharge Home (2) Pre-eclampsia during in second trimester, antepartum: COMMENT: plan 2x weekly NSTs, growth US q 4 weeks, labetalol 100 BID delivery at 37. weekly labs. home bp monitoring. celestone given 02/01- (3) Abnormal glucose affecting : COMMENT: 3 hour WNL (4) Family history of deafness and hearing loss: COMMENT: sister (5) : QUALIFIERS: Weeks of gestation: 36 weeks Qualified Code(s): Z3A.36 - 36 weeks gestation of COMMENT: NIPT low risk, carrier testing neg. . Nl anatomy (6) Supervision of high risk , antepartum: COMMENT: PRR NORMAN 03/21/24 girl [place] : [place] (7) Septate uterus affecting : QUALIFIERS: Trimester: second trimester Qualified Code(s): O34.02 - Maternal care for unspecified congenital malformation of uterus, second trimester; Q51.28 - Other and unspecified doubling of uterus (8) Mild type 1 von Willebrand disease: COMMENT: very mild. has paraprofessional aide with [facility]- reviewed, records scanned. recommend TXA at delivery, likely will not need DDAVP. Charges/Coding Multi Select Codes Urinary/Genital Urinary/Genital CPT Codes: No Charge
--- NOTE | 2024-03-03 09:29 | DCINST_ITS ---
Discharge Instructions Diet Discharge Diet: No restrictions Activity Discharge Activity: Return to Normal Activity May resume sexual activity in: 6-8 weeks Dressing / Incision Call your doctor if you observe: Fever of 101 or Higher, Coldness, Increased Pain, Numbness or Tingling, Change in Color, Inability to urinate, Using more than 1 pad per hour, Shortness of breath, Dizziness, Fainting spells, Swelling in the ankles, Chest pain, Increased palpitations (irregular heartbeat), Calf discomfort and Uncontrolled pain Follow Up Care Please Follow Up With: Lindsey Spencer CNM When: Please call the office to schedule your follow up appointment in 6 weeks. If you had high blood pressure please call to schedule an appointment in 1 weeks. Test Results: Test results from this visit will be discussed in further detail at your follow- up appointment, if applicable. Discharge Plan Admission Admit Date/Time: 02/29/24 19:15 Attending Provider: Lindsey Spencer Primary Care Provider: Mary Haas Discharge Orders/Prescriptions Prescriptions: No Action DHA 200 mg capsule 200 mg PO DAILY Rx Instructions: orally; labetalol 100 mg tablet 100 mg PO BID Qty: 60 3RF Referrals / Follow Up: Mary Haas MD [Primary Care Provider] -
[2024-03-04 14:03] LABS: Pathologist Review Reviewed
[2024-03-05 13:12] LABS: Pathology Specimen OB SEE PATHOLOGY REPORT
--- NOTE | 2024-03-07 10:24 | NURSING ---
Follow up phone call made, doing well, denies any pain or discomfort since being home. Bleeding is decreasing, almost gone. Balwinder is doing well, switched to pumping and feeding yesterday, feeding Balwinder 50-60 mls every 2-3 hours. Finally was able to get some good sleep last night and feels so much better. States she has a follow up with [facility] for her BP check today, and Bartacker appointment today. Denies any questions or concerns at this time. Loved her anesthesiologist, Monserrat, and Winnie.
== END 2024-03-03 10:30 | disposition home or self-care (01) | DRG 806 ==
PROVIDERS: Obstetrics & Gynecology; Admitting Provider Advanced Practice Midwife; PCP Internal Medicine; Referring Provider Advanced Practice Midwife; Visit Provider Advanced Practice Midwife
DX: O14.94 Unspecified pre-eclampsia, complicating childbirth (principal); Z37.0 Single live birth; D68.01 Von Willebrand disease, type 1; O99.12 Other diseases of the blood and blood-forming organs and certain disorders involving the immune mechanism complicating childbirth; O34.03 Maternal care for unspecified congenital malformation of uterus, third trimester; Q51.28 Other and unspecified doubling of uterus; O69.81X0 Labor and delivery complicated by cord around neck, without compression, not applicable or unspecified; O76 Abnormality in fetal heart rate and rhythm complicating labor and delivery; O70.0 First degree perineal laceration during delivery; Z3A.37 37 weeks gestation of pregnancy; Z87.891 Personal history of nicotine dependence
CPT/HCPCS: 59025; 59050; 85025; 86780; 86850; 86900; 86901; 88307; 99221; J7030; J7120; A4216; G0378; J2597

== ENCOUNTER → 2024-04-15 | Outpatient (CLI) | payer BC, SELFPAY ==
[2024-04-19 21:29] LABS: HPV Reflexed? NOT INDICATED
== END | disposition home or self-care (01) ==
LOC: LABSPEC 13:52
PROVIDERS: PCP Internal Medicine; Referring Provider Advanced Practice Midwife; Visit Provider Advanced Practice Midwife
DX: Z12.4 Encounter for screening for malignant neoplasm of cervix (principal)
CPT/HCPCS: 88175; G0145